=== PATIENT | male | born 1940 | race Caucasian/White ===

== ENCOUNTER → 2017-08-30 13:49 | Outpatient (CLI) | payer MEDICARE, OTHER, SELFPAY | PROVIDERS: Family Provider Internal Medicine; PCP Internal Medicine; Visit Provider Nurse Practitioner Gerontology | DX: I49.9 Cardiac arrhythmia, unspecified (principal); R00.2 Palpitations | CPT/HCPCS: 93225; 93226 ==

== ENCOUNTER → 2018-08-19 12:23 | Outpatient (CLI) | payer MEDICARE, OTHER, SELFPAY ==
--- NOTE | 2018-08-19 12:28 | US_ITS ---
STUDY: THYROID ULTRASOUND REASON FOR EXAM: Male, 78 years old. Nodules TECHNIQUE: Ultrasound evaluation of the thyroid was performed with real-time and static alcala-scale imaging. COMPARISON: 06/18/2017. FINDINGS: RIGHT LOBE: The right lobe of the thyroid gland measures 4.3 x 1.7 x 2.4 cm. There is a homogeneous echotexture. Several primarily cystic subcentimeter nodules are seen, grossly stable. LEFT LOBE: The left lobe of the thyroid gland measures 4.7 x 1.6 x 1.9 cm. There is a homogeneous echotexture. Several cystic nodules are seen. Largest at 1.5 cm in size and grossly stable. ISTHMUS: The isthmus measures 5 mm. . The regional lymph nodes are normal. US/Thyroid IMPRESSION: Multiple cystic thyroid nodules. These do not need biopsy. Annual follow up is adequate. Electronically Signed: Patrice Stafford MD at 17:16 EST , Service support ,
--- NOTE | 2018-08-19 12:48 | CDU_ITS ---
Reason For Study: carotid stenosis Rt. Velocities/BP Lt. Velocities/BP Prox CCA 72.7/11.7 cm/sec. Prox CCA 79.7/12.3 cm/sec. Mid CCA 69.8/16.4 cm/sec. Mid CCA 82.1/19.3 cm/sec. Dist CCA 59.2/17.0 cm/sec. Dist CCA 71.5/19.9 cm/sec. Prox ICA 50.4/15.2 cm/sec. Prox ICA 39.7/13.4 cm/sec. Mid ICA 49.2/16.4 cm/sec. Mid ICA 59.2/20.1 cm/sec. Dist ICA 57.5/20.5 cm/sec. Dist ICA 75.6/28.7 cm/sec. Rt. ICA/CCA = .8. Lt. ICA/CCA = .9. Prox ECA 88.5/11.1 cm/sec. Prox ECA 73.9/10.6 cm/sec. Rt. Vert. 33.3/7.38 cm/sec. Lt. Vert. 81.5/29.9 cm/sec. Right Extracranial There is homogeneous, smooth atherosclerotic plaque noted in the right common carotid artery. There is heterogeneous, irregular atherosclerotic plaque noted in the right internal carotid artery. There is homogeneous, smooth atherosclerotic plaque noted in the right external carotid artery. Antegrade flow is noted in the right vertebral artery. Left Extracranial There is homogeneous, smooth atherosclerotic plaque noted in the left common carotid artery. There is heterogeneous, irregular atherosclerotic plaque noted in the left internal carotid artery. There is homogeneous, smooth atherosclerotic plaque noted in the left external carotid artery. Antegrade flow is noted in the left vertebral artery. Procedure Carotid Duplex [id number]. The exam was diagnostic. Exam performed in department. Interpretation Summary Mild (<50%) stenosis right extracranial internal carotid. Mild (<50%) stenosis left extracranial internal carotid. Flow within the vertebral arteries is antegrade bilaterally. Ordering Physician: Amber Cisneros Performed By: Bashir Colón RVT
== END ==
PROVIDERS: Family Provider Internal Medicine; PCP Internal Medicine; Referring Provider Internal Medicine; Visit Provider Internal Medicine
DX: I65.23 Occlusion and stenosis of bilateral carotid arteries (principal); E04.1 Nontoxic single thyroid nodule
CPT/HCPCS: 76536; 93880

== ENCOUNTER → 2018-11-06 | Outpatient (CLI) | payer MEDICARE, OTHER, SELFPAY ==
[2018-10-09 14:35] VITALS: BMI 27.3
--- NOTE | 2018-11-06 07:53 | ECHOD_ITS ---
Reason For Study: MURMUR Procedure This was a 2D Doppler, Color Flow transthoracic echocardiogram. Exam performed in department. Left Ventricle Normal LV size. Moderate to severe concentric LVH. Left ventricular systolic function is normal. The estimated ejection fraction is 65 %. Post operative septal motion. Diastolic function is indeterminate. No regional wall motion abnormalities noted. Right Ventricle Normal RV size. Normal systolic function. Atria Normal left atrium. Normal right atrium. No doppler evidence for ASD. Mitral Valve There is no mitral annular calcification. Anterior leaflet diffuse mitral valve thickening. Mild (1+) mitral valve insufficiency. Tricuspid Valve Normal tricuspid valve. Trivial tricuspid valve insufficiency. Right ventricular systolic pressure estimated to be 30 mmHg. Aortic Valve Trisinus/trileaflet aortic valve. Mild focal aortic valve calcification. Mild aortic stenosis. Mild (1+) aortic valve insufficiency. Pulmonic Valve The pulmonic valve is not well visualized. Mild (1+) pulmonic valve insufficiency. Great Vessels Normal sized aortic root. Pericardium/Pleural No pericardial effusion. MMode/2D Measurements & Calculations LVIDd: 3.8 cm IVSd: 1.8 cm LVOT diam: 1.8 cm LVIDs: 2.4 cm LVPWd: 1.5 cm LVOT area: 2.5 cm2 RVDd: 3.4 cm FS: 36.3 % Ao root diam: 3.4 cm LAV(MOD-bp): 56.6 ml LVAd ap4: 30.1 cm2 LAV(MOD-bp) Indexed: 29.6 ml/m2 EDV(MOD-sp4): 103.6 ml LAV(MOD-sp2): 55.4 ml EDV(sp4-el): 107.4 ml LAV(MOD-sp4): 53.5 ml LVAs ap4: 15.6 cm2 ESV(MOD-sp4): 32.5 ml ESV(sp4-el): 33.0 ml EF(MOD-sp4): 68.6 % EF(sp4-el): 69.3 % SV(MOD-sp4): 71.1 ml SV(sp4-el): 74.4 ml Aortic Valve Planimetry: 1.7 cm2 LA A4 area: 18.8 cm2 LA dimension(2D): 3.5 cm RA A4 area: 19.4 cm2 Time Measurements MV dec time: 0.20 sec Doppler Measurements & Calculations MV E max reed: 100.9 cm/sec Lat Peak E' Reed: 5.2 cm/sec Med Peak E' Reed: 4.7 cm/sec MV A max reed: 116.6 cm/sec E/E' lat: 19.5 E/E' med: 21.7 MV E/A: 0.87 MV V2 max: 124.4 cm/sec MV P1/2t max reed: 112.6 cm/sec Ao V2 max: 225.1 cm/sec MV max P.2 mmHg MV P1/2t: 125.2 msec Ao max P.3 mmHg MV V2 mean: 70.1 cm/sec Ao V2 mean: 154.0 cm/sec MV mean P.4 mmHg MV dec slope: 263.2 cm/sec2 Ao mean P.9 mmHg MV V2 VTI: 41.3 cm MVA(P1/2t): 1.8 cm2 Ao V2 VTI: 48.6 cm MVA(VTI): 2.1 cm2 ESTHER(I,D): 1.8 cm2 ESTHER(V,D): 1.7 cm2 AI max reed: 492.7 cm/sec LV V1 max: 156.5 cm/sec SV(LVOT): 87.2 ml AI max P.2 mmHg LV V1 max P.8 mmHg LV V1 mean P.3 mmHg AI dec slope: 261.7 cm/sec2 LV V1 mean: 106.6 cm/sec AI P1/2t: 551.5 msec LV V1 VTI: 35.2 cm PA V2 max: 80.6 cm/sec PI end-d reed: 88.7 cm/sec TR max reed: 260.2 cm/sec TR max P.1 mmHg MV P1/2t-pr_phl: 119.8 msec Interpretation Summary Left ventricular systolic function is normal. The estimated ejection fraction is 65 %. Moderate to severe concentric LVH. Post operative septal motion. Anterior leaflet diffuse mitral valve thickening. Mild (1+) mitral valve insufficiency. Trivial tricuspid valve insufficiency. Mild aortic stenosis. Mild (1+) aortic valve insufficiency. Mild (1+) pulmonic valve insufficiency. Right ventricular systolic pressure estimated to be 30 mmHg. Diastolic function is indeterminate. 2D echocardiographic images demostrate an echodenisty in the area of the aortic valve annulus / base of the anterior mitral valve leaflet c/w aortic valve annular calcifiation: severe. Ordering Physician: Colby Byrd Referring Physician: MENDOZA ROJO Performed By: María Chaparro RDCS
== END | disposition home or self-care (01) ==
LOC: CVS 07:52
PROVIDERS: Family Provider Internal Medicine; PCP Internal Medicine; Referring Provider Internal Medicine Cardiovascular Disease; Visit Provider Internal Medicine Cardiovascular Disease
DX: I71.2 Thoracic aortic aneurysm, without rupture (principal)
CPT/HCPCS: 93306

== ENCOUNTER 2018-12-19 15:28 | Emergency (ER) | payer MEDICARE, OTHER, SELFPAY ==
[2018-10-09 14:35] VITALS: BMI 27.3
[2018-12-19] VITALS (9 sets, daily range): BP systolic 98–111; BP diastolic 49–65; PULSE 66–106; RESP 17–32; TEMP 36.7–38.9; O2SAT 92–95; BMI 29.4
--- NOTE | 2018-12-19 15:41 | RAD_ITS ---
STUDY: X-RAY CHEST REASON FOR EXAM: Male, 78 years old. Chest pain TECHNIQUE: Frontal view of the chest COMPARISON: X-ray chest December 01, 2014 FINDINGS: Post CABG changes are present. The lungs are clear. There are no pleural effusions. There is no pneumothorax. The heart is normal in size. The visualized osseous structures are within normal limits. RAD/Chest 1 View (Portable) IMPRESSION: No acute thoracic pathology. Electronically Signed: Daniel Rubio, at 16:12 EDT Tel , Service support ,
--- NOTE | 2018-12-19 15:41 | EKG12_ITS ---
Test Reason : ALTERED LOC Blood Pressure : / mmHG Vent. Rate : 098 BPM Atrial Rate : 098 BPM P-R Int : 184 ms QRS Dur : 092 ms QT Int : 358 ms P-R-T Axes : 027 -24 086 degrees QTc Int : 457 ms Normal sinus rhythm Minimal voltage criteria for LVH, may be normal variant Inferior infarct , age undetermined Cannot rule out Anterior infarct , age undetermined Abnormal ECG Confirmed by ZAFAR FERNANDES ([id number]), research editor KARINA ALICIA ([id number]) on 12/23/2018 1:28:18 PM Referred By: HARJEET Confirmed By:ROD FERNANDES
--- NOTE | 2018-12-19 15:45 | ED.VISSUMM ---
- ER Visit Summary Date of Service: 12/19/18 Chief Complaint: Altered level of consciousness History of Present Illness: The patient is a 78 M who reports nausea and vomiting for the past couple of days. He went to his PCP earlier today and got fluids and a prescription for Zofran. Patient was being very cold and having chills. He states he turn the thermostat up and put several layers of clothes on. When his came home from the grocery store she found him lying on the couch and his alertness was altered. He was not unconscious. Vomitus was noted on the patient's sugar on arrival to the emergency room. He denies having any pain. He did have some coughing earlier. He does admit to nausea and vomiting but no diarrhea. He denies abdominal pain. He has noted a fever the last couple days. He last took aspirin yesterday. He has not taken anything for fever today. Physical Examination: Blood pressure is 106/63, temperature 102.1, heart rate 106, respiratory rate 32, pulse ox 92% on room air. Patient sitting upright in bed. He is alert and talkative. Head and neck examination is grossly unremarkable. Heart is regular rate and rhythm with heart rate in the 90s at the time of my exam. Lung sounds are grossly clear. Abdomen is soft with no tenderness. Hypoactive bowel sounds are noted. Test Results: EKG is sinus at 98 with no acute ischemia. Portable chest x-ray shows no acute disease. CBC was normal white count with 91% neutrophils. Hemoglobin is 12.8. Chemistry studies reveal a sodium of 132, BUN 19, creatinine 1.35. This is actually improved from his baseline. LFTs significant only for an AST of 75. Urinalysis shows 15 ketones with no acute infection. Troponin is negative. Lactate is 2.0. Emergency Department Course and Treatment: Patient was given IV fluids and Tylenol here. Vital signs have remained stable. 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 He states the patient had the same symptoms when he had endocarditis 3 years ago. Patient's care was discussed with his lockstitch collar setter in [place] and they would prefer to have the patient in their facility so they can compare JOS[facility] MIGUEL to the one performed 3 years ago. I spoke with the transfer line. They have spoken with hospitalist as well as cardiology on-call and they would like me to start antibiotics after making sure blood cultures have been obtained. Blood cultures are currently pending and patient will be given vancomycin. Treatment Plan: [] Disposition: Transfer Impression: 1. Sepsis 2. Near syncope 3. History of endocarditis This note was generated with [employer] dictation software. It may contain incorrect words, spelling, and punctuation that were not noted in review of the chart prior to signing ED Disposition - Plan for ED Patient: Referrals: Blayne,Abmer, [Primary Care Provider] -
[2018-12-19] MEDS: Acetaminophen 325 MG Tablet 650 MG PO (15:51)
[2018-12-19 15:57] LABS: Absolute Lymphocyte Count 0.22 X10^3/ul (0.83-4.51); Absolute Neutrophil Count 5.8 X10^3/uL (2.0-7.7); Basophil# 0.01 X10^3/uL; Basophil% 0.2 % (0-1); Differential Indicated SCAN CRITERIA MET; Eosinophil# 0.01 X10^3/uL; Eosinophils% 0.2 % (0-5); Hemoglobin 12.8 g/dl (13.0-16.5); Lymphocyte # 0.22 X10^3/ul (4.0); Lymphocyte % 3.5 % (19-41); Mean Corp Hgb Conc 34.6 g/gl (32-36); Mean Corpuscular Hgb 31.4 pg (27.0-32.0); Mean Corpuscular Volume 90.7 fL (80-94); Monocyte# 0.24 X10^3/uL; Monocyte% 3.8 % (0-10); Neutrophil # 5.78 X10^3/uL (2.7-7.7); Neutrophil % 91.7 % (47-70); POSITIVE COUNT NO; POSITIVE DIFFERENTIAL YES; POSITIVE MORPHOLOGY YES; Platelet Count 212 K/mm3 (150-450); RBC Distribution Width CV 12.7 % (11.6-14.6); RBC Distribution Width SD 41.4 fl (35.1-43.9); Red Blood Count 4.08 M/mm3 (4.6-6.2); White Blood Count 6.3 K/mm3 (4.4-11.0)
[2018-12-19 15:58] LABS: International Normalized Ratio 1.4; Prothrombin Time (Protime)PT. 17.1 SECONDS (11.7-14.9)
[2018-12-19 15:59] LABS: Partial Thromboplast Time 39.2 Seconds (24.1-36.2)
[2018-12-19 16:13] LABS: ALB/GLOB Ratio 0.7 RATIO (0.9-2.4); AST(SGOT) 75 U/L (15-37); Alanine Aminotransfer ALT/SGPT 58 U/L (16-61); Albumin, Serum 2.9 g/dL (3.2-5.0); Alkaline Phosphatase 102 U/L (45-117); Anion Gap 8 (5-15); BUN 19 mg/dL (7-18); BUN/Creat Ratio 14.1 RATIO (10-20); Calcium,Total 8.1 mg/dL (8.5-10.1); Chloride 102 mmol/L (98-107); Creatinine, Serum 1.35 mg/dL (0.70-1.30); EST Glomerular Filtration Rate 54 mL/min (>60); Est Glom Filt Rate - Afr Amer 65 mL/min (>60); Estimated Creatinine Clearance 39.38 ml/min; Glucose 127 mg/dL (74-106); Potassium 3.6 mmol/L (3.5-5.1); Protein, Total 6.9 g/dL (6.4-8.2); Sodium Level 132 mmol/L (136-145)
[2018-12-19] MEDS: 0.9% Normal Saline 1,000 ML 150 ML IV (16:19)
[2018-12-19 16:38] LABS: Anisocytosis RARE; Macrocytosis RARE; Platelet Estimate ADEQUATE (ADEQ)
[2018-12-19 17:29] LABS: Mucous, Urine 0 SEEN /hpf (<or=2+); Squamous Epithelial Cells - UA 0 SEEN /hpf (0-5)
[2018-12-19 17:45] LABS: Color, Urine Yellow (Yellow); Glucose, Dipstick Normal (Normal); Ketone-Dipstick 15 mg/dl (Negative); Leukocyte Esterase-Dipstick 25 /ul (Negative); Nitrite-Dipstick Negative (Negative); Occult Blood-Urine 10 /ul (Negative); Protein-Dipstick 100 mg/dl (Negative); Urine Bilirubin Dipstick Negative (Negative); Urine Clarity Sl. Cloudy (Clear); Urine Urobilinogen Normal (Normal)
[2018-12-19 18:06] LABS: Bacteria 1+ /hpf (None Seen); Red Blood Cells-Urine 0-5 SEEN /hpf (0-5); White Blood Cells 0-5 SEEN /hpf (0-5)
[2018-12-19 19:47] LABS: Reflex Lactate? Y
[2018-12-19 20:35] LABS: Lactic Acid 1.2 mmol/L (0.4-2.0)
== END 2018-12-19 22:25 | disposition short-term general hospital (02) ==
PROVIDERS: Emergency Provider Emergency Medicine; Family Provider Internal Medicine; PCP Internal Medicine
DX: A41.9 Sepsis, unspecified organism (principal); R55 Syncope and collapse; Z86.79 Personal history of other diseases of the circulatory system; I10 Essential (primary) hypertension; E78.00 Pure hypercholesterolemia, unspecified; I71.9 Aortic aneurysm of unspecified site, without rupture; Z95.1 Presence of aortocoronary bypass graft; Z79.82 Long term (current) use of aspirin; Z79.02 Long term (current) use of antithrombotics/antiplatelets; Z79.899 Other long term (current) drug therapy
CPT/HCPCS: 71045; 80053; 81001; 83605; 84484; 85025; 85610; 85730; 87040; 87086; 87088; 87186; 93005; 96361; 96365; 96366; 99285; J7030; J7040; A4216

== ENCOUNTER → 2019-01-02 13:09 | Outpatient (CLI) | payer MEDICARE, OTHER, SELFPAY ==
[2018-12-19 15:29] VITALS: BMI 29.4
[2019-01-02] MEDS: Ceftriaxone 2 GM in 0.9% NS 50 ML Minibag x1 IV (13:28)
[2019-01-02 13:30] VITALS: BP 113/63; PULSE 65; RESP 18; TEMP 36.4; O2SAT 96; BMI 25.8
== END ==
PROVIDERS: Family Provider Internal Medicine; PCP Internal Medicine
DX: K75.0 Abscess of liver (principal); B96.6 Bacteroides fragilis [B. fragilis] as the cause of diseases classified elsewhere
CPT/HCPCS: 96365; A4216; J0696

== ENCOUNTER → 2019-01-03 13:11 | Outpatient (CLI) | payer MEDICARE, OTHER, SELFPAY ==
[2018-12-19 15:29] VITALS: BMI 29.4
[2019-01-02 13:30] VITALS: BMI 25.8
[2019-01-03 13:25] VITALS: BP 144/72; PULSE 62; RESP 16; TEMP 36.6; O2SAT 97; BMI 26.3
[2019-01-03] MEDS: Ceftriaxone 2 GM in 0.9% NS 50 ML Minibag x1 IV (13:29)
== END ==
PROVIDERS: Family Provider Internal Medicine; PCP Internal Medicine
DX: K75.0 Abscess of liver (principal); B96.6 Bacteroides fragilis [B. fragilis] as the cause of diseases classified elsewhere
CPT/HCPCS: 96365; J7050; A4216; J0696

== ENCOUNTER 2019-01-04 13:20 | Outpatient (CLI) | payer MEDICARE, OTHER, SELFPAY ==
[2018-12-19 15:29] VITALS: BMI 29.4
[2019-01-03 13:25] VITALS: BMI 26.3
[2019-01-04 13:47] VITALS: BP 122/71; PULSE 72; RESP 18; TEMP 37.1; O2SAT 97
[2019-01-04] MEDS: Ceftriaxone 2 GM in 0.9% NS 50 ML Minibag x1 IV (13:56)
[2019-01-04] MEDS: 0.9% NaCl PICC Flush IV ×2 (13:56→14:47)
== END 2019-01-04 14:51 | disposition home or self-care (01) ==
LOC: MEDOUTP 13:24 → MS3 13:26
PROVIDERS: Family Provider Internal Medicine; PCP Internal Medicine; Referring Provider Internal Medicine; Visit Provider Internal Medicine
DX: K76.0 Fatty (change of) liver, not elsewhere classified (principal); B96.6 Bacteroides fragilis [B. fragilis] as the cause of diseases classified elsewhere
CPT/HCPCS: 96365; A4216; J0696

== ENCOUNTER 2019-01-05 13:03 | Outpatient (CLI) | payer MEDICARE, OTHER, SELFPAY ==
[2018-12-19 15:29] VITALS: BMI 29.4
[2019-01-03 13:25] VITALS: BMI 26.3
[2019-01-05 13:27] VITALS: BP 138/78; PULSE 66; RESP 18; TEMP 36.7; O2SAT 99
[2019-01-05] MEDS: Ceftriaxone 2 GM in 0.9% NS 50 ML Minibag x1 IV (13:32)
[2019-01-05] MEDS: 0.9% NaCl IVPB Med Flush (250 mL) 15 ML IV (13:32)
== END 2019-01-05 14:25 | disposition home or self-care (01) ==
LOC: MEDOUTP 13:05 → MS3 13:06
PROVIDERS: Family Provider Internal Medicine; PCP Internal Medicine; Referring Provider Internal Medicine; Visit Provider Internal Medicine
DX: K75.0 Abscess of liver (principal); B96.6 Bacteroides fragilis [B. fragilis] as the cause of diseases classified elsewhere
CPT/HCPCS: 96365; J7050; J0696

== ENCOUNTER → 2019-01-06 12:56 | Outpatient (CLI) | payer MEDICARE, OTHER, SELFPAY ==
[2018-12-19 15:29] VITALS: BMI 29.4
[2019-01-03 13:25] VITALS: BMI 26.3
[2019-01-06 14:14] VITALS: BP 121/66; PULSE 67; RESP 16; TEMP 36.8; O2SAT 96
== END ==
PROVIDERS: Family Provider Internal Medicine; PCP Internal Medicine; Referring Provider Internal Medicine; Visit Provider Internal Medicine
DX: A49.8 Other bacterial infections of unspecified site (principal)
CPT/HCPCS: 96365; J7040; A4216

== ENCOUNTER → 2019-01-07 13:39 | Outpatient (CLI) | payer MEDICARE, OTHER, SELFPAY ==
[2018-12-19 15:29] VITALS: BMI 29.4
[2019-01-03 13:25] VITALS: BMI 26.3
[2019-01-07 13:52] VITALS: BP 148/84; PULSE 66; RESP 16; O2SAT 96; BMI 26.3
[2019-01-07 15:08] LABS: Absolute Lymphocyte Count 1.37 X10^3/ul (0.83-4.51); Absolute Neutrophil Count 3.8 X10^3/uL (2.0-7.7); Basophil# 0.02 X10^3/uL; Basophil% 0.3 % (0-1); Eosinophil# 0.18 X10^3/uL; Hematocrit 37.4 % (40-54); Hemoglobin 12.1 g/dl (13.0-16.5); Lymphocyte # 1.37 X10^3/ul (4.0); Lymphocyte % 22.9 % (19-41); Mean Corp Hgb Conc 32.4 g/gl (32-36); Mean Corpuscular Hgb 30.1 pg (27.0-32.0); Mean Platelet Vol. 8.7 fl (6.2-12.0); Monocyte# 0.57 X10^3/uL; Monocyte% 9.5 % (0-10); Neutrophil # 3.79 X10^3/uL (2.7-7.7); Neutrophil % 63.6 % (47-70); Platelet Count 305 K/mm3 (150-450); RBC Distribution Width CV 13.1 % (11.6-14.6); Red Blood Count 4.02 M/mm3 (4.6-6.2)
[2019-01-07 15:10] LABS: POSITIVE COUNT NO; POSITIVE DIFFERENTIAL NO; POSITIVE MORPHOLOGY NO
[2019-01-07 15:24] LABS: Erythrocyte Sedimentation Rate 51 mm/hr (0-20)
[2019-01-07 15:40] LABS: ALB/GLOB Ratio 0.7 RATIO (0.9-2.4); AST(SGOT) 20 U/L (15-37); Alanine Aminotransfer ALT/SGPT 21 U/L (16-61); Albumin, Serum 2.7 g/dL (3.2-5.0); Alkaline Phosphatase 117 U/L (45-117); Amylase 91 U/L (25-115); Anion Gap 5 (5-15); BUN 10 mg/dL (7-18); BUN/Creat Ratio 8.8 RATIO (10-20); CRP 6.86 mg/L (0.0-3.0); Calcium,Total 8.7 mg/dL (8.5-10.1); Chloride 103 mmol/L (98-107); Creatinine, Serum 1.13 mg/dL (0.70-1.30); EST Glomerular Filtration Rate 66 mL/min (>60); Est Glom Filt Rate - Afr Amer 80 mL/min (>60); Glucose 93 mg/dL (74-106); Lipase 182 U/L (73-393); Potassium 4.7 mmol/L (3.5-5.1); Protein, Total 6.7 g/dL (6.4-8.2); Sodium Level 135 mmol/L (136-145); Thyroid Stim Hormone (TSH) 1.25 uIU/mL (0.358-3.74)
[2019-01-07 22:15] LABS: Xtra Tube EP Lab EXTRA TUBE
[2019-01-13 16:06] LABS: Immunoglobulin A 240 mg/dL (61-437); Immunoglobulin E 40 IU/mL (6-495); Immunoglobulin G 986 mg/dL (700-1600); PROEL- A/G Ratio 0.9 (0.7-1.7); PROEL- Alpha-1 Globulin 0.4 g/dL (0.0-0.4); PROEL- Alpha-2 Globulin 0.8 g/dL (0.4-1.0); PROEL- Beta Globulin 0.9 g/dL (0.7-1.3); PROEL- Gamma Globulin 1.2 g/dL (0.4-1.8); PROEL- Globulin, Total 3.2 g/dL (2.2-3.9); PROEL- TOTAL PROTEIN 6.2 g/dL (6.0-8.5); PROELU- Albumin, Urine 12.4 % (.); PROELU- Alpha-1-Globulin,Ur 17.3 % (.); PROELU- Alpha-2-Globulin,Ur 13.1 % (.); PROELU- Gamma Globulin, Ur 23.7 % (.)
[2019-01-15 17:34] LABS: Immunoglobulin M 163 mg/dL (15-143)
[2019-01-15 17:39] LABS: PROELU- Beta Globulin, Ur 33.5 %
[2019-01-15 17:40] LABS: Total Protein, Ur 6.2 mg/dl (0.0-15.0)
== END ==
PROVIDERS: Family Provider Internal Medicine; PCP Internal Medicine; Referring Provider Internal Medicine; Visit Provider Internal Medicine
DX: A41.4 Sepsis due to anaerobes (principal); K75.0 Abscess of liver; I10 Essential (primary) hypertension
CPT/HCPCS: 96365; 36591; 80053; 82150; 82784; 82785; 83690; 84165; 84166; 84443; 84484; 85025; 85652; 86140; J7050; A4216

== ENCOUNTER → 2019-01-08 13:16 | Outpatient (CLI) | payer MEDICARE, OTHER, SELFPAY ==
[2019-01-07 13:52] VITALS: BMI 26.3
[2019-01-08 13:35] VITALS: BP 122/69; RESP 16; TEMP 36.6; O2SAT 96; BMI 24.7
== END ==
PROVIDERS: Family Provider Internal Medicine; PCP Internal Medicine; Referring Provider Internal Medicine; Visit Provider Internal Medicine
DX: A49.8 Other bacterial infections of unspecified site (principal)
CPT/HCPCS: 96365; J7050; A4216

== ENCOUNTER 2019-01-09 13:14 | Outpatient (CLI) | payer MEDICARE, OTHER, SELFPAY ==
[2019-01-07 13:52] VITALS: BMI 26.3
[2019-01-08 13:35] VITALS: BMI 24.7
[2019-01-09] MEDS: 0.9% NaCl IVPB Med Flush (250 mL) 15 ML IV (13:17)
[2019-01-09] MEDS: 0.9% NaCl PICC Flush IV ×2 (13:17→14:05)
[2019-01-09 13:19] VITALS: BP 107/60; PULSE 70; RESP 18; TEMP 36.8; O2SAT 95
== END 2019-01-09 14:05 | disposition home or self-care (01) ==
LOC: MEDOUTP 13:14 → MS3 13:15
PROVIDERS: Family Provider Internal Medicine; PCP Internal Medicine; Referring Provider Internal Medicine; Visit Provider Internal Medicine
DX: A49.8 Other bacterial infections of unspecified site (principal)
CPT/HCPCS: 96365; J7050; A4216

== ENCOUNTER → 2019-01-10 12:29 | Outpatient (CLI) | payer MEDICARE, OTHER, SELFPAY ==
[2019-01-08 13:35] VITALS: BMI 24.7
== END ==
PROVIDERS: Family Provider Internal Medicine; PCP Internal Medicine; Referring Provider Internal Medicine; Visit Provider Internal Medicine
DX: R00.0 Tachycardia, unspecified (principal)
CPT/HCPCS: 93225; 93226

== ENCOUNTER → 2019-01-10 13:18 | Outpatient (CLI) | payer MEDICARE, OTHER, SELFPAY ==
[2019-01-07 13:52] VITALS: BMI 26.3
[2019-01-08 13:35] VITALS: BMI 24.7
[2019-01-10 14:07] VITALS: BP 96/58; PULSE 75; RESP 16; TEMP 36.3; O2SAT 96; BMI 25.8
[2019-01-15 17:02] LABS: 5-HIAA, 24UR 4.3 mg/24 hr (0.0-14.9); 5-HIAA, UR 1.5 mg/L (Undefined)
== END ==
PROVIDERS: Family Provider Internal Medicine; PCP Internal Medicine; Referring Provider Internal Medicine; Visit Provider Internal Medicine
DX: A49.8 Other bacterial infections of unspecified site (principal); R00.0 Tachycardia, unspecified
CPT/HCPCS: 96365; 83497; 93225; 93226; J7050; A4216

== ENCOUNTER 2019-01-11 12:56 | Outpatient (CLI) | payer MEDICARE, OTHER, SELFPAY ==
[2019-01-07 13:52] VITALS: BMI 26.3
[2019-01-10 14:07] VITALS: BMI 25.8
[2019-01-11] MEDS: 0.9% NaCl IVPB Med Flush (250 mL) 15 ML IV (13:15)
[2019-01-11] MEDS: 0.9% NaCl PICC Flush IV ×2 (13:19→14:28)
[2019-01-11 13:41] VITALS: BP 105/51; PULSE 69; RESP 16; TEMP 36.6; O2SAT 95
== END 2019-01-11 14:29 | disposition home or self-care (01) ==
LOC: MEDOUTP 12:58 → MS3 13:00
PROVIDERS: Family Provider Internal Medicine; PCP Internal Medicine; Referring Provider Internal Medicine; Visit Provider Internal Medicine
DX: A49.8 Other bacterial infections of unspecified site (principal)
CPT/HCPCS: 96365; J7050; A4216

== ENCOUNTER 2019-01-12 13:00 | Outpatient (CLI) | payer MEDICARE, OTHER, SELFPAY ==
[2019-01-07 13:52] VITALS: BMI 26.3
[2019-01-10 14:07] VITALS: BMI 25.8
[2019-01-12 13:21] VITALS: BP 110/69; PULSE 74; RESP 16; TEMP 36.6; O2SAT 98
[2019-01-12] MEDS: 0.9% NaCl PICC Flush IV (14:05)
== END 2019-01-12 14:11 | disposition home or self-care (01) ==
LOC: MEDOUTP 13:01 → MS3 13:02
PROVIDERS: Family Provider Internal Medicine; PCP Internal Medicine; Referring Provider Internal Medicine; Visit Provider Internal Medicine
DX: A49.8 Other bacterial infections of unspecified site (principal)
CPT/HCPCS: 96365; J7040; A4216

== ENCOUNTER → 2019-01-13 13:01 | Outpatient (CLI) | payer MEDICARE, OTHER, SELFPAY ==
[2019-01-07 13:52] VITALS: BMI 26.3
[2019-01-10 14:07] VITALS: BMI 25.8
[2019-01-13 13:25] VITALS: BP 113/61; PULSE 68; RESP 16; TEMP 36.4; O2SAT 98; BMI 25.8
[2019-01-13 13:53] LABS: AST(SGOT) 32 U/L (15-37); Alanine Aminotransfer ALT/SGPT 35 U/L (16-61); Albumin, Serum 2.9 g/dL (3.2-5.0); Alkaline Phosphatase 123 U/L (45-117); Bilirubin, Direct 0.13 mg/dL (0.00-0.30); Globulin 3.8 g/dL (2.2-4.2); Protein, Total 6.7 g/dL (6.4-8.2)
== END ==
PROVIDERS: Family Provider Internal Medicine; PCP Internal Medicine; Referring Provider Internal Medicine; Visit Provider Internal Medicine
DX: A49.8 Other bacterial infections of unspecified site (principal)
CPT/HCPCS: 96365; 80076; J7050; A4216

== ENCOUNTER → 2019-01-14 13:14 | Outpatient (CLI) | payer MEDICARE, OTHER, SELFPAY ==
[2019-01-07 13:52] VITALS: BMI 26.3
[2019-01-13 13:25] VITALS: BMI 25.8
[2019-01-14 13:34] VITALS: BP 116/62; PULSE 76; RESP 16; TEMP 36.7; O2SAT 99; BMI 25.8
== END ==
PROVIDERS: Family Provider Internal Medicine; PCP Internal Medicine; Referring Provider Internal Medicine; Visit Provider Internal Medicine
DX: A49.8 Other bacterial infections of unspecified site (principal)
CPT/HCPCS: 96365; J7050; A4216

== ENCOUNTER → 2019-01-15 10:35 | Outpatient (CLI) | payer MEDICARE, OTHER, SELFPAY ==
[2019-01-08 13:35] VITALS: BMI 24.7
[2019-01-14 13:34] VITALS: BMI 25.8
--- NOTE | 2019-01-15 10:40 | NM_ITS ---
CLINICAL: 78-year-old male with reported history of right upper quadrant abdominal pain. RADIONUCLIDE HEPATOBILIARY SCINTIGRAPHY COMPARISON: None available FINDINGS: Following the intravenous administration of 5.4 mCi of 99m Tc Mebrofenin, hepatobiliary images reveal: 1. Relatively prompt and homogeneous radiopharmaceutical concentration is noted by a normal sized liver. No parenchymal defects are identified. 2. Gallbladder activity is identified at 75 minutes post radiopharmaceutical administration. 3. Small intestinal tract is observed at 15 minutes following tracer injection. 4. Washout of the radiopharmaceutical by the hepatic parenchyma appears qualitatively normal. Cholecystokinin (0.02 ug/kg) was administered intravenously over a 30-minute period. The post CCK gallbladder ejection fraction calculated at 20 minutes following Cholecystokinin administration was noted to be 31.0 % (normal greater than 35%). GA/Hepatobilliary Img w/Pharm Int IMPRESSION: 1. ABNORMAL 99m Tc Mebrofenin hepatobiliary imaging examination with Cholecystokinin. A. A gallbladder ejection fraction calculated to be less than 35% following the administration of Cholecystokinin is consistent with the presence of functional hepatobiliary disease (gallbladder and/or sphincter of Oddi dyskinesia) and/or organic hepatobiliary disease (chronic acalculous cholecystitis and/or cystic duct syndrome) in patients with intermediate to high pretest probabilities of hepatobiliary illness. (Christy Grissom et al, Journal of Nuclear Medicine 32:1695, 1990). Electronically Signed: David Hernandez DO at 23:39 EDT Tel , Service support ,
== END ==
PROVIDERS: Family Provider Internal Medicine; PCP Internal Medicine; Referring Provider Internal Medicine; Visit Provider Internal Medicine
DX: K75.0 Abscess of liver (principal)
CPT/HCPCS: 78227; A9537; J2805

== ENCOUNTER → 2019-01-15 13:31 | Outpatient (CLI) | payer MEDICARE, OTHER, SELFPAY ==
[2019-01-07 13:52] VITALS: BMI 26.3
[2019-01-14 13:34] VITALS: BMI 25.8
[2019-01-15 13:49] VITALS: BP 124/72; PULSE 62; RESP 15; TEMP 36.8; O2SAT 96; BMI 25.0
== END ==
PROVIDERS: Family Provider Internal Medicine; PCP Internal Medicine; Referring Provider Internal Medicine; Visit Provider Internal Medicine
DX: K75.0 Abscess of liver (principal); A49.8 Other bacterial infections of unspecified site
CPT/HCPCS: 96365; 78227; A9537; J7050; A4216; J2805

== ENCOUNTER → 2019-01-16 12:56 | Outpatient (CLI) | payer MEDICARE, OTHER, SELFPAY ==
[2019-01-07 13:52] VITALS: BMI 26.3
[2019-01-15 13:49] VITALS: BMI 25.0
[2019-01-16 13:26] VITALS: BP 107/52; PULSE 65; RESP 16; TEMP 36.3; O2SAT 96; BMI 24.7
== END ==
PROVIDERS: Family Provider Internal Medicine; PCP Internal Medicine; Referring Provider Internal Medicine; Visit Provider Internal Medicine
DX: R78.81 Bacteremia (principal); K75.0 Abscess of liver
CPT/HCPCS: 96365; J7050; A4216

== ENCOUNTER → 2019-01-17 13:02 | Outpatient (CLI) | payer MEDICARE, OTHER, SELFPAY ==
[2019-01-07 13:52] VITALS: BMI 26.3
[2019-01-16 13:26] VITALS: BMI 24.7
[2019-01-17 13:17] VITALS: BP 121/62; PULSE 66; RESP 16; TEMP 36.6; O2SAT 98; BMI 24.7
== END ==
PROVIDERS: Family Provider Internal Medicine; PCP Internal Medicine; Referring Provider Internal Medicine; Visit Provider Internal Medicine
DX: K75.0 Abscess of liver (principal); A49.8 Other bacterial infections of unspecified site
CPT/HCPCS: 96365; A4216

== ENCOUNTER 2019-01-18 12:51 | Outpatient (CLI) | payer MEDICARE, OTHER, SELFPAY ==
[2019-01-07 13:52] VITALS: BMI 26.3
[2019-01-17 13:17] VITALS: BMI 24.7
[2019-01-18 13:12] VITALS: BP 117/59; PULSE 63; RESP 14; TEMP 36.6; O2SAT 97
[2019-01-18] MEDS: 0.9% NaCl PICC Flush IV ×2 (13:19→14:06)
[2019-01-18 14:08] VITALS: BP 133/60; PULSE 63; RESP 14; TEMP 36.9; O2SAT 97
== END 2019-01-18 14:15 | disposition home or self-care (01) ==
LOC: MEDOUTP 12:52 → ICU 12:59
PROVIDERS: Family Provider Internal Medicine; PCP Internal Medicine; Referring Provider Internal Medicine; Visit Provider Internal Medicine
DX: A49.8 Other bacterial infections of unspecified site (principal); K75.0 Abscess of liver
CPT/HCPCS: 96365; A4216

== ENCOUNTER 2019-01-19 13:10 | Outpatient (CLI) | payer MEDICARE, OTHER, SELFPAY ==
[2019-01-07 13:52] VITALS: BMI 26.3
[2019-01-17 13:17] VITALS: BMI 24.7
[2019-01-19 13:57] VITALS: BP 116/56; PULSE 60; RESP 16; TEMP 36.6; O2SAT 96; BMI 26.3
[2019-01-19] MEDS: 0.9% NaCl Peripheral Flush Adult/Peds IV (13:58)
[2019-01-19 14:28] VITALS: BP 129/63; PULSE 63; RESP 18; TEMP 36.6; O2SAT 97; BMI 26.3
[2019-01-19] MEDS: 0.9% NaCl PICC Flush IV (14:29)
== END 2019-01-19 14:30 | disposition home or self-care (01) ==
LOC: MEDOUTP 13:27 → ICU 13:28
PROVIDERS: Family Provider Internal Medicine; PCP Internal Medicine; Referring Provider Internal Medicine; Visit Provider Internal Medicine
DX: R78.81 Bacteremia (principal); K75.0 Abscess of liver
CPT/HCPCS: 96365; A4216

== ENCOUNTER → 2019-01-20 | Outpatient (CLI) | payer MEDICARE, OTHER, SELFPAY ==
[2019-01-07 13:52] VITALS: BMI 26.3
[2019-01-19 14:28] VITALS: BMI 26.3
[2019-01-20 13:33] VITALS: BMI 24.7
[2019-01-20 13:36] VITALS: BP 146/63; PULSE 55; RESP 16; TEMP 36.6; O2SAT 98; BMI 24.7
[2019-01-20 13:41] LABS: Hematocrit 35.9 % (40-54); Hemoglobin 11.9 g/dl (13.0-16.5); Mean Corp Hgb Conc 33.1 g/gl (32-36); Mean Corpuscular Hgb 30.7 pg (27.0-32.0); Mean Corpuscular Volume 92.5 fL (80-94); Mean Platelet Vol. 8.6 fl (6.2-12.0); Platelet Count 206 K/mm3 (150-450); RBC Distribution Width CV 13.6 % (11.6-14.6); RBC Distribution Width SD 45.2 fl (35.1-43.9); Red Blood Count 3.88 M/mm3 (4.6-6.2); White Blood Count 5.6 K/mm3 (4.4-11.0)
[2019-01-20 13:54] LABS: Anion Gap 6 (5-15); BUN 12 mg/dL (7-18); BUN/Creat Ratio 11.5 RATIO (10-20); Calcium,Total 8.4 mg/dL (8.5-10.1); Chloride 107 mmol/L (98-107); Creatinine, Serum 1.04 mg/dL (0.70-1.30); EST Glomerular Filtration Rate 73 mL/min (>60); Est Glom Filt Rate - Afr Amer 88 mL/min (>60); Estimated Creatinine Clearance 54.81 ml/min; Glucose 95 mg/dL (74-106); Sodium Level 139 mmol/L (136-145)
[2019-01-20 14:33] LABS: Scan Indicated on CBC? Y/N NO
[2019-01-20 21:34] LABS: Xtra Tube EP Lab EXTRA TUBE
== END | disposition home or self-care (01) ==
LOC: MEDOUTP 13:03
PROVIDERS: Family Provider Internal Medicine; PCP Internal Medicine; Referring Provider Internal Medicine; Visit Provider Internal Medicine
DX: K75.0 Abscess of liver (principal); B96.89 Other specified bacterial agents as the cause of diseases classified elsewhere; R78.81 Bacteremia
CPT/HCPCS: 96365; 36591; 80048; 85027; J7050; A4216

== ENCOUNTER → 2019-01-21 13:01 | Outpatient (CLI) | payer MEDICARE, OTHER, SELFPAY ==
[2019-01-07 13:52] VITALS: BMI 26.3
[2019-01-20 13:36] VITALS: BMI 24.7
[2019-01-21 13:15] VITALS: BMI 24.7
[2019-01-21 13:19] VITALS: BP 123/67; PULSE 58; RESP 16; TEMP 36.3; O2SAT 99; BMI 24.7
== END ==
PROVIDERS: Family Provider Internal Medicine; PCP Internal Medicine; Referring Provider Internal Medicine; Visit Provider Internal Medicine
DX: A49.8 Other bacterial infections of unspecified site (principal); K75.0 Abscess of liver
CPT/HCPCS: 96365; J7050; A4216

== ENCOUNTER → 2019-01-22 13:06 | Outpatient (CLI) | payer MEDICARE, OTHER, SELFPAY ==
[2019-01-07 13:52] VITALS: BMI 26.3
[2019-01-21 13:19] VITALS: BMI 24.7
[2019-01-22 13:22] VITALS: BP 145/79; PULSE 58; RESP 16; TEMP 36.6; O2SAT 98; BMI 24.7
== END ==
PROVIDERS: Family Provider Internal Medicine; PCP Internal Medicine; Referring Provider Internal Medicine; Visit Provider Internal Medicine
DX: A49.8 Other bacterial infections of unspecified site (principal)
CPT/HCPCS: 96365; J7050; A4216

== ENCOUNTER → 2019-01-23 09:21 | Outpatient (CLI) | payer MEDICARE, OTHER, SELFPAY ==
[2019-01-07 13:52] VITALS: BMI 26.3
[2019-01-22 13:22] VITALS: BMI 24.7
[2019-01-23 09:27] VITALS: BP 124/63; PULSE 57; RESP 16; TEMP 36.1; O2SAT 96; BMI 24.7
== END ==
PROVIDERS: Family Provider Internal Medicine; PCP Internal Medicine; Referring Provider Internal Medicine; Visit Provider Internal Medicine
DX: R78.81 Bacteremia (principal); K75.0 Abscess of liver
CPT/HCPCS: 96365; J7050; A4216

== ENCOUNTER → 2019-01-24 12:52 | Outpatient (CLI) | payer MEDICARE, OTHER, SELFPAY ==
[2019-01-07 13:52] VITALS: BMI 26.3
[2019-01-23 09:27] VITALS: BMI 24.7
[2019-01-24 13:11] VITALS: BP 117/58; PULSE 62; RESP 16; TEMP 36.7; O2SAT 96; BMI 24.7
== END ==
PROVIDERS: Family Provider Internal Medicine; PCP Internal Medicine; Referring Provider Internal Medicine; Visit Provider Internal Medicine
DX: A49.8 Other bacterial infections of unspecified site (principal)
CPT/HCPCS: 96365; J7050; A4216

== ENCOUNTER 2019-01-25 12:41 | Outpatient (CLI) | payer MEDICARE, OTHER, SELFPAY ==
[2019-01-07 13:52] VITALS: BMI 26.3
[2019-01-24 13:11] VITALS: BMI 24.7
[2019-01-25 13:00] VITALS: BP 109/65; PULSE 59; RESP 16; TEMP 36.7; O2SAT 98
[2019-01-25 14:07] VITALS: BP 135/74; PULSE 57; RESP 16; TEMP 36.6; O2SAT 98
[2019-01-25] MEDS: 0.9% NaCl PICC Flush IV (14:08)
== END 2019-01-25 14:10 | disposition home or self-care (01) ==
LOC: MEDOUTP 12:42 → PCU 12:43
PROVIDERS: Family Provider Internal Medicine; PCP Internal Medicine; Referring Provider Internal Medicine; Visit Provider Internal Medicine
DX: A49.8 Other bacterial infections of unspecified site (principal)
CPT/HCPCS: 96365; J7040; A4216

== ENCOUNTER 2019-01-26 13:09 | Outpatient (CLI) | payer MEDICARE, OTHER, SELFPAY ==
[2019-01-24 13:11] VITALS: BMI 24.7
[2019-01-26 13:15] VITALS: BP 126/77; PULSE 60; RESP 16; TEMP 36.6; O2SAT 97
[2019-01-26] MEDS: 0.9% NaCl PICC Flush IV (14:19)
== END 2019-01-26 14:20 | disposition home or self-care (01) ==
LOC: MEDOUTP 13:12 → MS3 13:13
PROVIDERS: Family Provider Internal Medicine; PCP Internal Medicine
DX: A49.8 Other bacterial infections of unspecified site (principal)
CPT/HCPCS: 96365; A4216

== ENCOUNTER → 2019-01-27 13:02 | Outpatient (CLI) | payer MEDICARE, OTHER, SELFPAY ==
[2019-01-24 13:11] VITALS: BMI 24.7
[2019-01-27 13:51] LABS: Hematocrit 37.4 % (40-54); Hemoglobin 12.3 g/dL (13.0-16.5); Mean Corp Hgb Conc 32.9 g/dL (32-36); Mean Corpuscular Hgb 30.5 pg (27.0-32.0); Mean Corpuscular Volume 92.8 fL (80-94); Mean Platelet Vol. 8.5 fl (6.2-12.0); Platelet Count 204 K/mm3 (150-450); RBC Distribution Width CV 13.2 % (11.6-14.6); RBC Distribution Width SD 45.2 fl (35.1-43.9); Red Blood Count 4.03 M/mm3 (4.6-6.2); White Blood Count 6.3 K/mm3 (4.4-11.0)
[2019-01-27 14:05] LABS: Anion Gap 5 (5-15); BUN 18 mg/dL (7-18); BUN/Creat Ratio 15.1 RATIO (10-20); Calcium,Total 8.7 mg/dL (8.5-10.1); Chloride 105 mmol/L (98-107); Creatinine, Serum 1.19 mg/dL (0.70-1.30); EST Glomerular Filtration Rate 62 mL/min (>60); Est Glom Filt Rate - Afr Amer 76 mL/min (>60); Glucose 99 mg/dL (74-106); Sodium Level 137 mmol/L (136-145)
[2019-01-27 14:52] VITALS: BP 112/64; PULSE 57; RESP 16; TEMP 36.3
[2019-01-27 16:34] VITALS: BP 112/64; PULSE 57; RESP 16; TEMP 36.3; BMI 24.7
== END ==
PROVIDERS: Family Provider Internal Medicine; PCP Internal Medicine; Referring Provider Internal Medicine; Visit Provider Internal Medicine
DX: A49.8 Other bacterial infections of unspecified site (principal)
CPT/HCPCS: 96365; 80048; 85027; J7050; A4216

== ENCOUNTER → 2019-01-29 13:17 | Outpatient (CLI) | payer MEDICARE, OTHER, SELFPAY ==
[2019-01-27 16:34] VITALS: BMI 24.7
[2019-01-29 13:25] VITALS: BP 144/65; PULSE 58; RESP 15; TEMP 36.4; O2SAT 95; BMI 24.7
== END ==
PROVIDERS: Family Provider Internal Medicine; PCP Internal Medicine; Referring Provider Internal Medicine; Visit Provider Internal Medicine
DX: A49.8 Other bacterial infections of unspecified site (principal); K75.0 Abscess of liver

== ENCOUNTER 2019-04-08 09:05 | Emergency (ER) | payer MEDICARE, OTHER, SELFPAY ==
[2019-01-29 13:25] VITALS: BMI 24.7
[2019-04-08 09:06] VITALS: BP 149/98; PULSE 76; RESP 16; TEMP 36.4; O2SAT 95; BMI 26.7
--- NOTE | 2019-04-08 09:15 | EKG12_ITS ---
Test Reason : SVT Blood Pressure : / mmHG Vent. Rate : 068 BPM Atrial Rate : 068 BPM P-R Int : 232 ms QRS Dur : 098 ms QT Int : 400 ms P-R-T Axes : -19 -25 050 degrees QTc Int : 425 ms Sinus rhythm with 1st degree A-V block Minimal voltage criteria for LVH, may be normal variant Septal infarct age undetermined, cannot be excluded Inferior Infarct,age undetermined, cannot be excluded Nonspecific T-wave abnormality Abnormal ECG Confirmed by JENNIFER AMEZCUA, YULI ([id number]), newspaper photo editor KARINA ALICIA ([id number]) on 04/09/2019 12:07:39 PM Referred By: MR Confirmed By:YULI RODRIGUEZ MD
--- NOTE | 2019-04-08 09:15 | RAD_ITS ---
STUDY: X-RAY CHEST REASON FOR EXAM: Male, 79 years old. Shortness of breath. Chest pain. TECHNIQUE: AP and lateral views of the chest. COMPARISON: Comparison is made with prior examination dated December 19, 2018. FINDINGS: EKG electrodes are seen. Hyperinflation. Decreased bronchovascular markings in both lungs suggestive of emphysematous change. This is unchanged. There is no demonstrated pleural abnormality. Sternal cerclage wires and vascular clips are present from a prior sternotomy and coronary artery bypass graft procedure (CABG). Stable widening of the superior mediastinum on the left side. This may be due to a vascular anomaly. There is prominence of the pulmonary hilar arteries without peripheral pulmonary vascular congestion, suggesting pulmonary hypertension. There is atherosclerotic tortuosity of the aortic arch and descending thoracic aorta. There are degenerative changes of the visualized thoracic spine. Normal visualized ribs, clavicles, and shoulders. There is no demonstrated abnormality of the visualized soft tissue structures of the upper abdomen. RAD/Chest PA and Lateral IMPRESSION: Hyperinflation and emphysematous changes. Stable examination. Electronically Signed: Jaime Gunn, at 10:36 EDT , Service support ,
[2019-04-08 09:25] LABS: Absolute Lymphocyte Count 1.54 X10^3/uL (0.83-4.51); Absolute Neutrophil Count 3.6 X10^3/uL (2.0-7.7); Basophil# 0.07 X10^3/uL; Basophil% 1.2 % (0-1); Eosinophil# 0.37 X10^3/uL; Eosinophils% 6.1 % (0-5); Hematocrit 44.2 % (40-54); Hemoglobin 14.7 g/dL (13.0-16.5); Lymphocyte # 1.54 X10^3/ul (4.0); Lymphocyte % 25.3 % (19-41); Mean Corp Hgb Conc 33.3 g/dL (32-36); Mean Corpuscular Hgb 30.4 pg (27.0-32.0); Mean Corpuscular Volume 91.3 fL (80-94); Mean Platelet Vol. 8.6 fl (6.2-12.0); Monocyte# 0.45 X10^3/uL; Monocyte% 7.4 % (0-10); NRBC Flagged by Analyzer 0 % (0-5); Neutrophil # 3.62 X10^3/uL (2.7-7.7); Neutrophil % 59.5 % (47-70); Platelet Count 252 K/mm3 (150-450); RBC Distribution Width CV 13.1 % (11.6-14.6); RBC Distribution Width SD 43.5 fl (35.1-43.9); Red Blood Count 4.84 M/mm3 (4.6-6.2); White Blood Count 6.1 K/mm3 (4.4-11.0)
[2019-04-08 09:39] LABS: International Normalized Ratio 1.1; Prothrombin Time (Protime)PT. 13.6 SECONDS (11.7-14.9)
[2019-04-08 09:40] LABS: Partial Thromboplast Time 35.1 Seconds (24.1-36.2)
[2019-04-08 09:41] LABS: Anion Gap 12 (5-15); BUN 15 mg/dL (7-18); BUN/Creat Ratio 13.2 RATIO (10-20); Calcium,Total 9.1 mg/dL (8.5-10.1); Chloride 106 mmol/L (98-107); Creatinine, Serum 1.14 mg/dL (0.70-1.30); EST Glomerular Filtration Rate 66 mL/min (>60); Est Glom Filt Rate - Afr Amer 79 mL/min (>60); Estimated Creatinine Clearance 49.17 ml/min; Glucose 112 mg/dL (74-106); Potassium 4.1 mmol/L (3.5-5.1); Sodium Level 143 mmol/L (136-145)
[2019-04-08 09:44] LABS: D-Dimer Quantitative (DVT/PE) 0.97 FEU/ug/m (0.27-0.49)
[2019-04-08 10:23] VITALS: BP 122/86; PULSE 66; RESP 19; O2SAT 96
[2019-04-08 10:50] VITALS: O2SAT 96
--- NOTE | 2019-04-08 11:10 | NURSING ---
CALLED [facility], DR OROZCO TALKED TO TRANSFER LINE FAXED FACESHEET
--- NOTE | 2019-04-08 11:27 | ED.DCSUM_ITS ---
History of Present Illness Chief Complaint: Shortness of Breath Informant: Patient Narrative: Patient presenting for evaluation secondary to palpitations and shortness of breath. Patient has a extensive history. 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 He has a history of having a aortic valve replacement, as well as cardiovascular disease with stents. 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 He was treated for this, and had improvement. The patient then developed further infectious symptoms and was found to have a liver abscess that did test culture positive. Patient was treated for that, and it was thought that potentially the abscess was from his gallbladder so he underwent cholecystectomy about 3 weeks ago. Throughout the course of the patient's infection he has been having issues with symptomatic atrial tachycardia where his heart rate will go from normal and jump up into the 160s or 170s. Patient's symptoms really are palpitations and lightheadedness and shortness of breath. Patient states that he has been having more frequent symptoms today. There is no real exacerbating relieving factors, he denies being febrile. His incisions from his recent surgery are well healing and noninfected. Review of systems otherwise negative. Past Medical History - Allergies and Home Meds Allergies/Adverse Reactions: Allergies colestipol [From Colestid] Adverse Reaction (Severe, Verified 04/08/19 09:09) Headaches ezetimibe [From Zetia] Adverse Reaction (Severe, Verified 04/08/19 09:09) Myalgias lisinopril Adverse Reaction (Severe, Verified 04/08/19 09:09) Cough Primary Care Physician: Amber Cisneros DO [Primary Care Provider] - Past Medical History: - - Endocarditis, liver abscess, coronary artery disease, aortic valve replacement Surgical History: angioplasty, - - Prostate surgery this September Thoracic aortic coarctation repair (1960) Smoking Status: Never smoker - Family History Maternal Family History: Family History (Last Reviewed 10/09/18 @ 14:36 by My Zambrano) Mother CVA (cerebral vascular accident) brain hemorrhage Father Pneumonia Family History: Reports: No pertinent history Review of Systems All systems negative except as indicated Cardiovascular: Reports: Palpitations Respiratory: Reports: Dyspnea Physical Exam Vital Signs/Narrative: Vital Signs Temp Pulse Resp BP Pulse Ox 04/08/19 10:23 66 19 H 122/86 H 96 04/08/19 09:06 97.6 F L 76 16 149/98 H 95 Inital Vital Signs reviewed: Yes General: Well nourished, Well developed, No Acute Distress Head: Normocephalic, Atraumatic Eyes: Perrl, EOMI ENT: Moist mucous membranes, No rhinorrhea Neck: Supple, Nontender Cardiovascular: Regular rate, Regular rhythm, Murmur - 3 out of 6 Respiratory: No distress, CTA bilaterally, Chest nontender Abdomen: Soft, Nontender, Nondistended, - - Well-healing laparoscopy incisions nonerythematous no evidence of drainage Back: Nontender, Normal Inspection Extremities: Nontender, No edema Skin: Normal color, No rash Neurological: Alert, Oriented x3, Cranial nerves II-XII grossly intact, Normal Strength, Normal Sensation Psychological: Normal affect, Normal Mood Diagnostic/Tx/Re-eval Chest X-Ray - ED: 2 View, Read by ED Physician, Read by Radiologist, Normal - Rhythm Strip Rhythm Strip: Patient has intermittent runs of atrial tachycardia that is regular narrow complex and has a rate in the 150s, then he will spontaneously convert back into a normal sinus rhythm with a ventricular rate of 68 - EKG Initial EKG Interpretation: - - Sinus rhythm with first-degree AV block NC interval is 232. Biphasic T waves noted in lead V2 that were present in a prior EKG. No evidence of acute ST segment changes or T wave changes. - Medical Decision Making Patient presented secondary to bouts of atrial tachycardia. He had multiple bouts in the emergency department. CBC chemistry and troponin found to be negative. I did get a d-dimer on the patient prior to being given the history that he had a history of this in the past. The d-dimer was found to be positive, but the patient is not complaining of hemoptysis, continuous chest pain or shortness of breath, but rather only symptoms when he has this tachycardia. I do not believe that CT angiogram is indicated. Patient has all of his treatment performed at [facility], and he informed me that he likely is pending a EP study and ablation. Patient will be transferred there for further treatment. ED Disposition - Plan for ED Patient: Disposition: [facility] Diagnosis: Atrial tachycardia
--- NOTE | 2019-04-08 11:28 | NURSING ---
CALLED [facility]. ETA IS 45 MIN TO 1 HR
[2019-04-08 12:11] VITALS: BP 123/75; PULSE 69; RESP 17; O2SAT 95
== END 2019-04-08 12:56 | disposition short-term general hospital (02) ==
PROVIDERS: Emergency Provider Emergency Medicine; Family Provider Internal Medicine; PCP Internal Medicine
DX: I47.1 Supraventricular tachycardia (principal); I25.10 Atherosclerotic heart disease of native coronary artery without angina pectoris; I44.0 Atrioventricular block, first degree; Z95.2 Presence of prosthetic heart valve; Z79.82 Long term (current) use of aspirin; Z79.02 Long term (current) use of antithrombotics/antiplatelets; Z79.899 Other long term (current) drug therapy
CPT/HCPCS: 71046; 80048; 84484; 85025; 85379; 85610; 85730; 93005; 99285; A4216

== ENCOUNTER → 2021-04-12 08:54 | Outpatient (CLI) | payer MEDICARE, OTHER, SELFPAY | PROVIDERS: PCP Internal Medicine; Referring Provider Internal Medicine Cardiovascular Disease; Visit Provider Internal Medicine Cardiovascular Disease | DX: I25.10 Atherosclerotic heart disease of native coronary artery without angina pectoris (principal); E78.00 Pure hypercholesterolemia, unspecified; I10 Essential (primary) hypertension; I71.2 Thoracic aortic aneurysm, without rupture; I35.9 Nonrheumatic aortic valve disorder, unspecified; Z95.1 Presence of aortocoronary bypass graft | CPT/HCPCS: 93306 ==

== ENCOUNTER → 2021-06-09 12:58 | Outpatient (CLI) | payer MEDICARE, OTHER, SELFPAY ==
--- NOTE | 2021-06-09 13:03 | CDU_ITS ---
Reason For Study: carotid artery stenosis Rt. Velocities/BP Lt. Velocities/BP Prox CCA 68.2/8.2 cm/sec. Prox CCA 66.2/8.0 cm/sec. Mid CCA 69.5/8.2 cm/sec. Mid CCA 71.7/9.1 cm/sec. Dist CCA 48.6/6.9 cm/sec. Dist CCA 59.7/10.2 cm/sec. Prox ICA 40.9/9.7 cm/sec. Prox ICA 46.5/11.6 cm/sec. Mid ICA 38.1/10.7 cm/sec. Mid ICA 50.9/13.3 cm/sec. Dist ICA 53.2/14.5 cm/sec. Dist ICA 64.8/19.5 cm/sec. Rt. ICA/CCA = .8. Lt. ICA/CCA = .9. Prox ECA 81.2/5.6 cm/sec. Prox ECA 78.3/8.0 cm/sec. Rt. Vert. 14.3/4.2 cm/sec. Lt. Vert. 51.7/12.5 cm/sec. Right Extracranial There is intimal thickening but no significant atherosclerotic plaque noted in the right common carotid artery. There is heterogeneous, irregular atherosclerotic plaque noted in the right internal carotid artery. There is intimal thickening but no significant atherosclerotic plaque noted in the right external carotid artery. Antegrade flow is noted in the right vertebral artery. Left Extracranial There is homogeneous, smooth atherosclerotic plaque noted in the left common carotid artery. There is heterogeneous, irregular atherosclerotic plaque noted in the left internal carotid artery. There is homogeneous, smooth atherosclerotic plaque noted in the left external carotid artery. Antegrade flow is noted in the left vertebral artery. Procedure Carotid Duplex 20197. This is a Carotid Duplex examination using B-mode, color flow and specral Doppler. The exam was diagnostic. Exam performed in department. VL/Carotid Duplex Ultrasound Interpretation Summary Minimal irregular plaque at the proximal right internal carotid artery with les s than 50% stenosis Less than 50% stenosis right external carotid artery Irregular calcific plaque of the proximal left internal carotid artery with les s than 50% stenosis Less than 50% stenosis left external carotid artery Patent and antegrade vertebrals bilaterally No change from the previous examination of August 19, 2018 Ordering Physician: Amber Cisneros Performed By: Bashir Colón RVT
== END ==
PROVIDERS: PCP Internal Medicine; Referring Provider Internal Medicine; Visit Provider Internal Medicine
DX: I65.23 Occlusion and stenosis of bilateral carotid arteries (principal)
CPT/HCPCS: 93880

== ENCOUNTER → 2022-06-21 | Outpatient (CLI) | payer MEDICARE, OTHER, SELFPAY ==
--- NOTE | 2022-06-21 15:52 | ECHOD_ITS ---
Reason For Study: CAD/ASHD Procedure This was a 2D Doppler, Color Flow transthoracic echocardiogram. The exam was of adequate technical quality. Exam performed in department. Left Ventricle Normal LV size. Mild concentric left ventricular hypertrophy. Left ventricular systolic function is normal. The estimated ejection fraction is 70 %. Post operative septal motion. Stage 2 diastolic dysfunction. No regional wall motion abnormalities noted. Right Ventricle Normal RV size. Normal systolic function. Atria The left atrium is mildly enlarged. The right atrium is mildly enlarged. Mitral Valve There is no mitral annular calcification. Mild focal mitral valve calcification of the anterior leaflet. Mild (1+) eccentric mitral valve insufficiency. Tricuspid Valve Normal tricuspid valve. Mild to moderate (1-2+) tricuspid valve insufficiency. Right ventricular systolic pressure estimated to be 33 mmHg. Aortic Valve Trisinus/trileaflet aortic valve. Moderate focal aortic valve calcification. Mild aortic stenosis. Mild (1+) eccentric aortic valve insufficiency. Pulmonic Valve The pulmonic valve is not well visualized. Mild (1+) pulmonic valve insufficiency. Great Vessels Normal sized aortic root. Pericardium/Pleural No pericardial effusion. MMode/2D Measurements & Calculations LVIDd: 4.3 cm IVSd: 1.3 cm LVOT diam: 1.9 cm LVIDs: 2.5 cm LVPWd: 1.4 cm LVOT area: 2.8 cm2 RVDd: 3.1 cm FS: 41.3 % Ao root diam: 3.0 cm LAV(MOD-sp4): 68.1 ml LVAd ap4: 23.3 cm2 LVLd ap4: 6.9 cm EDV(MOD-sp4): 61.9 ml EDV(sp4-el): 66.4 ml LVAs ap4: 11.1 cm2 LVLs ap4: 5.8 cm ESV(MOD-sp4): 18.5 ml ESV(sp4-el): 18.1 ml EF(MOD-sp4): 70.1 % EF(sp4-el): 72.7 % SV(MOD-sp4): 43.4 ml SV(sp4-el): 48.3 ml LA A4 area: 24.7 cm2 LA dimension(2D): 4.1 cm RA A4 area: 32.4 cm2 Time Measurements MV dec time: 0.25 sec Doppler Measurements & Calculations MV E max reed: 120.0 cm/sec Lat Peak E' Reed: 4.8 cm/sec Med Peak E' Reed: 4.4 cm/sec MV A max reed: 116.5 cm/sec E/E' lat: 25.0 E/E' med: 27.6 MV E/A: 1.0 MV V2 max: 122.7 cm/sec Ao V2 max: 224.8 cm/sec MV max P.0 mmHg MV dec slope: 487.9 cm/sec2 Ao max P.2 mmHg MV V2 mean: 66.0 cm/sec Ao V2 mean: 149.8 cm/sec MV mean P.2 mmHg Ao mean P.6 mmHg MV V2 VTI: 45.0 cm Ao V2 VTI: 53.6 cm AV (velocity ratio): 0.60 MVA(VTI): 2.0 cm2 ESTHER(I,D): 1.7 cm2 ESTHER(V,D): 1.6 cm2 AI max reed: 533.1 cm/sec LV V1 max: 130.9 cm/sec SV(LVOT): 89.5 ml AI max P.7 mmHg LV V1 max P.9 mmHg LV V1 mean P.2 mmHg AI dec slope: 297.8 cm/sec2 LV V1 mean: 96.4 cm/sec AI P1/2t: 524.2 msec LV V1 VTI: 32.2 cm PA V2 max: 94.5 cm/sec PI end-d reed: 97.8 cm/sec TR max reed: 273.3 cm/sec PA max PG (full): 2.8 mmHg TR max P.9 mmHg PA V2 mean: 65.2 cm/sec PA mean PG (full): 1.6 mmHg ECHO/Echo Complete Interpretation Summary Left ventricular systolic function is normal. The estimated ejection fraction is 70 %. Mild concentric left ventricular hypertrophy. Post operative septal motion. The left atrium is mildly enlarged. The right atrium is mildly enlarged. Mild focal mitral valve calcification of the anterior leaflet. Mild (1+) eccentric mitral valve insufficiency. Mild to moderate (1-2+) tricuspid valve insufficiency. Mild aortic stenosis. Mild (1+) eccentric aortic valve insufficiency. Mild (1+) pulmonic valve insufficiency. Right ventricular systolic pressure estimated to be 33 mmHg. Stage 2 diastolic dysfunction. Comment: a) 2D echocardiographic images demostrate an echodenisty in the area of the aor tic valve annulus / base of the anterior mitral valve leaflet c/w aortic valve annular calcifiation : severe. b) compared to the previous transthoracic echocardiogram from 04-12-2021 : Ther e are similar type findings. Ordering Physician: Carmine Hart Referring Physician: Carmine Hart Performed By: Nelly Mnuiz RCS
== END | disposition home or self-care (01) ==
PROVIDERS: PCP Internal Medicine; Referring Provider Nurse Practitioner Family; Visit Provider Nurse Practitioner Family
DX: I25.10 Atherosclerotic heart disease of native coronary artery without angina pectoris (principal); I35.9 Nonrheumatic aortic valve disorder, unspecified; R00.2 Palpitations
CPT/HCPCS: 93306

== ENCOUNTER → 2022-07-19 | Outpatient (CLI) | payer MEDICARE, OTHER, SELFPAY ==
--- NOTE | 2022-07-19 11:55 | CDU_ITS ---
Reason For Study: Carotid Stenosis Rt. Velocities/BP Lt. Velocities/BP Prox CCA 53.5/5.3 cm/sec. Prox CCA 62.2/9.5 cm/sec. Mid CCA 43.4/7.8 cm/sec. Mid CCA 44.6/8.4 cm/sec. Dist CCA 34.6/6.1 cm/sec. Dist CCA 45.7/9.5 cm/sec. Prox ICA 40.3/9.7 cm/sec. Prox ICA 33.6/7.4 cm/sec. Mid ICA 39.6/10.9 cm/sec. Mid ICA 48.5/14.5 cm/sec. Dist ICA 47.4/14.7 cm/sec. Dist ICA 50.4/13.7 cm/sec. Rt. ICA/CCA = 0.9. Lt. ICA/CCA = 1.1. Prox ECA 50.2/4.7 cm/sec. Prox ECA 54.5/5.1 cm/sec. Rt. Vert. 16.7/4.7 cm/sec. Lt. Vert. 49.0/12.7 cm/sec. Right Extracranial There is heterogeneous, smooth atherosclerotic plaque noted in the right common carotid artery. There is heterogeneous, irregular atherosclerotic plaque noted in the right internal carotid artery. There is heterogeneous, smooth atherosclerotic plaque noted in the right external carotid artery. Antegrade flow is noted in the right vertebral artery. Left Extracranial There is heterogeneous, smooth atherosclerotic plaque noted in the left common carotid artery. There is heterogeneous, irregular atherosclerotic plaque noted in the left internal carotid artery. There is heterogeneous, smooth atherosclerotic plaque noted in the left external carotid artery. Antegrade flow is noted in the left vertebral artery. Procedure Carotid Duplex [id number]. This is a Carotid Duplex examination using B-mode, color flow and specral Doppler. The exam was diagnostic. Exam performed in department. VL/Carotid Duplex Ultrasound Interpretation Summary Minimal plaque at the proximal right internal carotid artery with less than 50% stenosis Less than 50% stenosis right external carotid artery Irregular plaque at the proximal left internal carotid artery with less than 50 % stenosis Less than 50% stenosis left external carotid artery Patent and antegrade vertebral arteries bilaterally No change from the previous examination of June 09, 2021 Ordering Physician: Amber Cisneros Referring Physician: Amber Cisneros D.O. Performed By: Luis Rice RVT
--- NOTE | 2022-07-19 11:55 | US_ITS ---
INDICATION: thyroid nodule -- thyroid nodule EXAMINATION: Ultrasound US Thyroid (eg thyroid, parathyroid, parotid) TECHNIQUE: Becker scale and color doppler imaging was performed of the thyroid gland. COMPARISON: None. FINDINGS: RIGHT THYROID LOBE: Measures 3.9 x 1.7 x 1.9 cm. Homogeneous echotexture with normal vascularity. [No thyroid nodules are present. Multiple colloid cysts. LEFT THYROID LOBE: Measures 4.4 x 1.3 x 1.5 cm. Homogeneous echotexture with normal vascularity. [No thyroid nodules are present. Multiple colloid cysts. ISTHMUS: Measures 0.4 cm. No thyroid nodules are present. 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 Otherwise normal appearing thyroid gland. Electronically Signed: Barrington Henderson MD at 18:16 EST ,
== END | disposition home or self-care (01) ==
LOC: CVS 11:53
PROVIDERS: PCP Internal Medicine; Visit Provider Internal Medicine
DX: I65.23 Occlusion and stenosis of bilateral carotid arteries (principal); E04.1 Nontoxic single thyroid nodule
CPT/HCPCS: 76536; 93880

== ENCOUNTER 2023-06-05 07:59 | Emergency (ER) | payer MEDICARE, OTHER, SELFPAY ==
[2023-06-05 08:00] VITALS: BP 163/96; PULSE 82; RESP 15; TEMP 36.6; O2SAT 95; BMI 25.5
--- NOTE | 2023-06-05 08:29 | EKG12_ITS ---
Test Reason : Blood Pressure : / mmHG Vent. Rate : 078 BPM Atrial Rate : 079 BPM P-R Int : 288 ms QRS Dur : 094 ms QT Int : 376 ms P-R-T Axes : 092 -20 112 degrees QTc Int : 428 ms Sinus rhythm with 1st degree A-V block Left ventricular hypertrophy with repolarization abnormality ( R in aVL , [place] product ) Cannot rule out Septal infarct , age undetermined Inferior infarct , age undetermined Abnormal ECG Confirmed by ISMAEL AMEZCUA, SHOSHANA ([id number]), manager editorial TRESA HINKLE ([id number]) on 06/06/2023 11:03:09 AM Referred By: Confirmed By:SHOSHANA GUEVARA MD
--- NOTE | 2023-06-05 08:30 | EDS_ITS ---
HPI History of Present Illness Chief Complaint: Fever Informant: patient and friend Narrative Narrative: 83-year-old male presenting to the emergency room chief complaint of feeling ill. Patient states that his was sick and on Sunday evening he began to feel ill. He notes he developed nasal congestion/rhinorrhea cough diarrhea fever and body aches. He states that he did not sleep well last night because of nasal congestion on the right. He took a cough drop and states that that opened up. He states he still was not feeling well this morning and had a temperature of 101. He took a Tylenol. No syncope. No chest pain. He notes a long cardiac history including bypass and valvular disease. [facility] Medical History (Updated 06/05/23 @ 09:[address] 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 Shortness of breath Syncope Ventricular tachycardia Home Medications clopidogrel 75 mg tablet 75 mg PO DAILY HEART 09/19/13 [History Last Taken 12/18/18] pravastatin 40 mg tablet 40 mg PO QHS CHOLESTEROL LOWERING 09/19/13 [History Last Taken 12/18/18] aspirin 81 mg tablet,delayed release 81 mg PO DAILY HEART 12/20/14 [History Last Taken 12/18/18] carvedilol 25 mg tablet 25 mg PO BID HEART 12/21/14 [History Last Taken 12/19/18] amlodipine 2.5 mg tablet 2.5 mg PO QDAY BLOOD PRESSURE 09/12/17 [History Last Taken 12/18/18] lactobacillus combination no.8 3 billion cell capsule (Adult Probiotic) 3,000 mmu cells PO QDAY 09/12/17 [History Last Taken 12/18/18] nitroglycerin 0.4 mg sublingual tablet 0.4 mg sublingual Q5M PRN Pain #25 tabs 03/31/21 [Rx Last Taken Unknown] cholestyramine (with sugar) 4 gram powder for susp in a packet 1 ea PO BID 03/16/22 [History Last Taken Unknown] valsartan 80 mg tablet 80 mg PO BID 03/16/22 [History Last Taken Unknown] Allergy/AdvReac Type Severity Reaction Status Date / Time colestipol [From Colestid] AdvReac Severe Headaches Verified 06/05/23 08:03 ezetimibe [From Zetia] AdvReac Severe Myalgias Verified 06/05/23 08:03 lisinopril AdvReac Severe Cough Verified 06/05/23 08:03 Family History Mother CVA (cerebral vascular accident) brain hemorrhage Father Pneumonia Surgical History (Updated 06/05/23 @ 09:[address] Shade Thakur DO) Aortocoronary bypass status (~06/08/14) History of prostate surgery History of transurethral resection of prostate Postsurgical percutaneous transluminal coronary angioplasty (PTCA) status Presence of stent in coronary artery (~01/03/11) Status post aortic coarctation repair (~1960) Social History Smoking Status: Never smoker alcohol intake: never substance use type: does not use caffeine: No what type of physical activity do you participate in: other details: alexander seatbelt use: always do you feel safe at home: Yes ROS ROS ED Constitutional Constitutional ED: Reports chills and fever(s); Denies weight loss Eyes Eyes: Denies change in vision or diplopia ENT ENT ED: Reports rhinorrhea; Denies ear pain or sore throat Cardiovascular Cardiovascular: Denies chest pain, orthopnea, palpitations or racing heartbeat Respiratory/Chest Respiratory/Chest: Reports cough; Denies dyspnea or orthopnea Gastrointestinal Gastrointestinal: Reports diarrhea; Denies abdominal pain, nausea or vomiting Genitourinary Genitourinary ED: Denies dysuria, hematuria or urinary frequency Musculoskeletal Musculoskeletal: Reports back pain and myalgias; Denies arthralgias Integumentary Denies abscess or rash Neurologic Neurologic: Denies headache(s) or weakness Psychiatric Psychiatric: Denies anxiety, depression, suicidal ideation or suicidal thoughts Endocrine Endocrinology: Denies polydipsia, polyphagia or polyuria Allergic/Immunologic Allergic/Immunologic ED: Denies mouth swelling, tongue swelling or urticaria EXAM Physical Exam Const Vital Signs: 06/05/23 08:00 11/28/23 08:20 Temperature 97.8 F Temperature Source Temporal Pulse Rate 82 Respiratory Rate 15 Respiratory Pattern Normal Blood Pressure 163/96 H Blood Pressure Mean 118 Pulse Ox 95 Oxygen Delivery Method Room Air Positive well nourished and well developed General Appearance ED: well developed HEENT Reports normocephalic, head/scalp atraumatic and moist mucous membranes Eyes PERRL and EOMs intact bilaterally Neck no lymphadenopathy, supple and no JVD Resp normal respiratory effort and clear to auscultation bilaterally Cardio regular rate, regular rhythm and no murmurs GI normal to inspection, nondistended, normoactive bowel sounds and non-tender Palpation: soft Back/Spine no CVA tenderness and normal ROM Extremity normal to inspection General Extremety ED: Negative for edema General Extremity: Negative for edema Neuro oriented x3 and CN's II-XII intact bilaterally Sensorium / Orientation: alert Motor Exam: strength 5/5 throughout Psych mental status grossly normal Mood & Affect: Negative for depressed or tearful Skin no rashes or lesions noted and no wounds MDM MDM MDM Narrative Medical decision making narrative: Broad differential includes but not limited to infectious etiology such as COVID-19 and influenza, pneumonia, UTI, ACS, electrolyte abnormalities, dehydration. White count 9.2 hemoglobin 12.9. CMP with a glucose of 121. Troponin is 12. Urinalysis with no overt infection. COVID-19 positive. My independent interpretation of the chest x-ray is no acute process. Patient's had no events on the monitor. His EKG is sinus with no ACS features. At this point I think the patient can be discharged home. He is not requiring supplemental oxygen. Would recommend continued Tylenol as needed for fever. Fluid hydration. Rest and follow-up as needed. He is now at day 6 outside the window for COVID-19 therapies. History & Record Review Discussion w/independent historian: Patient and Friend Additional record(s) reviewed:: Prior labs Lab Data Attestation: I reviewed the patient's lab results. Labs: Laboratory Results - last 24 hr 06/05/23 06/05/23 08:35 09:27 WBC 9.2 RBC 4.15 L Hgb 12.9 L Hct 39.1 L MCV 94.2 H MCH 31.1 MCHC 33.0 RDW Std Deviation 43.8 RDW Coeff of Brett 12.6 Plt Count 242 MPV 9.0 Immature Gran % (Auto) 0.500 Neut % (Auto) 84.4 H Lymph % (Auto) 6.6 L [place] % (Auto) 7.0 Eos % (Auto) 1.2 Baso % (Auto) 0.3 Absolute Neuts (auto) 7.8 H Absolute Lymphs (auto) 0.61 L Nucleated RBC % 0 Sodium 132 L Potassium 3.7 Chloride 100 Carbon Dioxide 27.0 Anion Gap 5 BUN 13 Creatinine 1.02 Estim Creat Clear Calc 52.95 Est GFR (MDRD) Af Amer 89 Est GFR (MDRD) Non-Af 74 BUN/Creatinine Ratio 12.7 Glucose 121 H Calcium 8.2 L Total Bilirubin 0.70 AST 14 L ALT 25 Alkaline Phosphatase 58 Troponin I High Sens 12 Total Protein 6.9 Albumin 2.9 L Globulin 4.0 Albumin/Globulin Ratio 0.7 L Urine Color Yellow Urine Clarity Clear Urine pH 6.0 Ur Specific [place] 1.015 Urine Protein 30 H Urine Glucose (UA) Normal Urine Ketones 5 H Urine Occult Blood 10 H Urine Nitrite Negative Urine Bilirubin Negative Urine Urobilinogen 8 H Ur Leukocyte Esterase 25 H Urine RBC 0-5 SEEN Urine WBC 0-5 SEEN Ur Squamous Epith Cells 0-5 SEEN Urine Bacteria 1+ Urine Mucus 0 SEEN Radiography Diagnostic Testing: Clinical Impression(s) from Imaging Studies Chest X-Ray 06/05/23 08:45 IMPRESSION: No acute cardiopulmonary abnormality. No interval change. Electronically Signed: Charly Carmona MD at 8:54 EST Reading Location ID and State: [address] [place] [address] Tel , Service support , EKG Initial EKG: Attestation: I personally reviewed and interpreted this EKG as follows: Comments: Sinus rhythm with first-degree AV block and a ventricular rate of 78 bpm. Discharge Plan Triage Chief Complaint: Fever ED Provider: Shade Thakur Dx/Rx/DC Orders Clinical Impression: COVID-19, Atherosclerotic heart disease of [place] coronary artery without angina pectoris, Aortocoronary bypass status, Essential hypertension Instructions: Coronavirus Disease 2019 (COVID-19): Caring for Yourself or Others Prescriptions: No Action amlodipine 2.5 mg tablet 2.5 mg PO QDAY lactobacillus combination no.8 [Adult Probiotic] 3 billion cell capsule 3,000 mmu cells PO QDAY nitroglycerin 0.4 mg tablet, sublingual 0.4 mg SUBLINGUAL Q5M PRN (Reason: Pain) Qty: 25 1RF cholestyramine (with sugar) 4 gram powder in packet 1 ea PO BID valsartan 80 mg tablet 80 mg PO BID pravastatin 40 MG tablet 40 mg PO QHS Patient Comments: lower cholesterol clopidogrel 75 MG tablet 75 mg PO DAILY Patient Comments: decrease cholesterol aspirin 81 MG tablet 81 mg PO DAILY carvedilol 25 MG tablet 25 mg PO BID Primary Care Provider: Amber Cisneros Referrals: Amber Cisneros DO [Primary Care Provider] - As Needed Disposition Disposition: Home, Self Care
--- NOTE | 2023-06-05 08:45 | RAD_ITS ---
EXAM: XR CHEST, 1 VIEW CLINICAL INDICATION: cough TECHNIQUE: Frontal view of the chest. COMPARISON: XR Chest dated 04/08/2019 FINDINGS: LUNGS AND PLEURAL SPACES: Stable pleural-parenchymal scarring of the left lung. HEART: Surgical changes of coronary artery bypass graft (CABG). Normal heart size. MEDIASTINUM: No mediastinal or hilar mass. BONES/JOINTS: No acute abnormality. RAD/Chest 1 View (Portable) IMPRESSION: No acute cardiopulmonary abnormality. No interval change. Electronically Signed: Charly Carmona MD at 8:54 EST ,
[2023-06-05 08:50] LABS: Absolute Lymphocyte Count 0.61 X10^3/uL (0.83-4.51); Absolute Neutrophil Count 7.8 X10^3/uL (2.0-7.7); Basophil# 0.03 X10^3/uL; Basophil% 0.3 % (0-1); Eosinophil# 0.11 X10^3/uL; Eosinophils% 1.2 % (0-5); Hematocrit 39.1 % (40-54); Hemoglobin 12.9 g/dL (13.0-16.5); Lymphocyte # 0.61 X10^3/ul (0.83-4.51); Lymphocyte % 6.6 % (19-41); Mean Corpuscular Hgb 31.1 pg (27.0-32.0); Mean Corpuscular Volume 94.2 fL (80-94); Monocyte# 0.64 X10^3/uL; NRBC Flagged by Analyzer 0 % (0-5); Neutrophil # 7.76 X10^3/uL (2.7-7.7); Neutrophil % 84.4 % (47-70); Platelet Count 242 K/mm3 (150-450); RBC Distribution Width CV 12.6 % (11.6-14.6); RBC Distribution Width SD 43.8 fl (35.1-43.9); Red Blood Count 4.15 M/mm3 (4.6-6.2); White Blood Count 9.2 K/mm3 (4.4-11.0)
[2023-06-05 09:04] LABS: ALB/GLOB Ratio 0.7 RATIO (0.9-2.4); AST(SGOT) 14 U/L (15-37); Alanine Aminotransfer ALT/SGPT 25 U/L (16-61); Albumin, Serum 2.9 g/dL (3.2-5.0); Alkaline Phosphatase 58 U/L (45-117); Anion Gap 5 (5-15); BUN 13 mg/dL (7-18); BUN/Creat Ratio 12.7 RATIO (10-20); Calcium,Total 8.2 mg/dL (8.5-10.1); Chloride 100 mmol/L (98-107); Creatinine, Serum 1.02 mg/dL (0.70-1.30); EST Glomerular Filtration Rate 74 mL/min (>60); Est Glom Filt Rate - Afr Amer 89 mL/min (>60); Estimated Creatinine Clearance 52.95 ml/min; Glucose 121 mg/dL (74-106); Potassium 3.7 mmol/L (3.5-5.1); Protein, Total 6.9 g/dL (6.4-8.2); Sodium Level 132 mmol/L (136-145); Troponin-I HS 12 pg/mL (3.0-78.0)
[2023-06-05 09:32] LABS: Mucous, Urine 0 SEEN /hpf (<or=2+)
[2023-06-05 09:33] LABS: Color, Urine Yellow (Yellow); Glucose, Dipstick Normal (Normal); Ketone-Dipstick 5 mg/dl (Negative); Leukocyte Esterase-Dipstick 25 /ul (Negative); Nitrite-Dipstick Negative (Negative); Occult Blood-Urine 10 /ul (Negative); Protein-Dipstick 30 mg/dl (Negative); Specific Gravity, Urine 1.015 (1.002-1.030); Urine Bilirubin Dipstick Negative (Negative); Urine Clarity Clear (Clear); Urine Urobilinogen 8 mg/dl (Normal)
[2023-06-05 09:42] LABS: Bacteria 1+ /hpf (None Seen); Red Blood Cells-Urine 0-5 SEEN /hpf (0-5); Squamous Epithelial Cells - UA 0-5 SEEN /hpf (0-5); White Blood Cells 0-5 SEEN /hpf (0-5)
[2023-06-05 10:05] VITALS: O2SAT 94
== END 2023-06-05 10:06 | disposition home or self-care (01) ==
PROVIDERS: Emergency Provider Emergency Medicine; PCP Internal Medicine; Visit Provider Emergency Medicine
DX: U07.1 COVID-19 (principal); I25.10 Atherosclerotic heart disease of native coronary artery without angina pectoris; E78.00 Pure hypercholesterolemia, unspecified; I10 Essential (primary) hypertension; Z79.82 Long term (current) use of aspirin; Z79.899 Other long term (current) drug therapy; Z95.1 Presence of aortocoronary bypass graft; Z95.5 Presence of coronary angioplasty implant and graft
CPT/HCPCS: 71045; 80053; 81001; 84484; 85025; 87428; 93005; 99284; A4216

== ENCOUNTER → 2023-07-20 | Outpatient (CLI) | payer MEDICARE, OTHER, SELFPAY ==
--- NOTE | 2023-07-20 10:57 | ECHOD_ITS ---
Reason For Study: ABNORMAL HEART RYTHM Procedure This was a 2D Doppler, Color Flow transthoracic echocardiogram. Exam performed in department. Left Ventricle Normal LV size. Left ventricular systolic function is normal. The estimated ejection fraction is 65 %. No regional wall motion abnormalities noted. Right Ventricle Normal RV size. Normal systolic function. Atria Normal left atrium. Normal right atrium. Mitral Valve There is mild mitral annular calcification. Mild (1+) eccentric mitral valve insufficiency. Tricuspid Valve Normal tricuspid valve. Mild (1+) tricuspid valve insufficiency. Pulmonary artery systolic pressure is 38 mmHg. Aortic Valve Trisinus/trileaflet aortic valve. Mild focal aortic valve calcification. Mild (1+) aortic valve insufficiency. Pulmonic Valve Normal pulmonic valve. Mild (1+) pulmonic valve insufficiency. Great Vessels Normal aortic root. The pulmonary artery is normal size. Normal inferior vena cava. Pericardium/Pleural No pericardial effusion. MMode/2D Measurements & Calculations LVIDd: 3.9 cm IVSd: 1.1 cm LVOT diam: 1.9 cm LVIDs: 2.6 cm LVPWd: 1.2 cm LVOT area: 2.8 cm2 RVDd: 3.5 cm FS: 32.9 % Ao root diam: 3.8 cm LAV(MOD-bp): 53.8 ml LVAd ap4: 29.4 cm2 LAV(MOD-bp) Indexed: 27.5 ml/m2 LVLd ap4: 7.3 cm LAV(MOD-sp2): 51.1 ml EDV(MOD-sp4): 96.3 ml LAV(MOD-sp4): 56.8 ml EDV(sp4-el): 100.1 ml LVAs ap4: 15.5 cm2 LVLs ap4: 6.0 cm ESV(MOD-sp4): 34.1 ml ESV(sp4-el): 33.7 ml EF(MOD-sp4): 64.5 % EF(sp4-el): 66.3 % SV(MOD-sp4): 62.1 ml SV(sp4-el): 66.4 ml LA A4 area: 20.7 cm2 LA dimension(2D): 3.7 cm RA A4 area: 18.7 cm2 Time Measurements MV dec time: 0.25 sec Doppler Measurements & Calculations MV E max reed: 127.0 cm/sec Lat Peak E' Reed: 7.3 cm/sec Med Peak E' Reed: 5.6 cm/sec MV A max reed: 122.1 cm/sec E/E' lat: 17.4 E/E' med: 22.5 MV E/A: 1.0 MV V2 max: 148.2 cm/sec Ao V2 max: 220.3 cm/sec AI max reed: 531.1 cm/sec MV max P.8 mmHg Ao max P.4 mmHg AI max P.8 mmHg MV V2 mean: 82.3 cm/sec Ao V2 mean: 156.8 cm/sec MV mean P.4 mmHg Ao mean P.0 mmHg AI dec slope: 272.8 cm/sec2 MV V2 VTI: 43.2 cm Ao V2 VTI: 53.7 cm AI P1/2t: 570.1 msec AV (velocity ratio): 0.74 MVA(VTI): 2.6 cm2 ESTHER(I,D): 2.1 cm2 ESTHER(V,D): 2.1 cm2 LV V1 max: 163.5 cm/sec SV(LVOT): 110.5 ml PA V2 max: 79.2 cm/sec LV V1 max P.7 mmHg LV V1 mean P.4 mmHg LV V1 mean: 107.7 cm/sec LV V1 VTI: 39.8 cm TR max reed: 288.7 cm/sec TR max P.3 mmHg ECHO/Echo Complete Interpretation Summary Normal LV size. Left ventricular systolic function is normal. The estimated ejection fraction is 65 %. Pulmonary artery systolic pressure is 38 mmHg. There is mild mitral annular calcification. Mild (1+) aortic valve insufficiency. Ordering Physician: Amber Cisneros Referring Physician: Amber Cisneros Performed By: María Chaparro RDCS
== END | disposition home or self-care (01) ==
LOC: CVS 10:54
PROVIDERS: PCP Internal Medicine; Referring Provider Internal Medicine; Visit Provider Internal Medicine
DX: I49.9 Cardiac arrhythmia, unspecified (principal); R06.02 Shortness of breath
CPT/HCPCS: 93306

== ENCOUNTER → 2023-08-08 | Outpatient (CLI) | payer MEDICARE, OTHER, SELFPAY ==
--- NOTE | 2023-08-08 09:46 | CDU_ITS ---
Reason For Study: Carotid Stenosis Rt. Velocities/BP Lt. Velocities/BP Prox CCA 59/8 cm/sec. Prox CCA 96/13 cm/sec. Mid CCA 71/11 cm/sec. Mid CCA 65/10 cm/sec. Dist CCA 42/8 cm/sec. Dist CCA 45/8 cm/sec. Prox ICA 61/10 cm/sec. Prox ICA 49/10 cm/sec. Mid ICA 41/13 cm/sec. Mid ICA 50/13 cm/sec. Dist ICA 54/16 cm/sec. Dist ICA 63/20 cm/sec. Rt. ICA/CCA = 0.9. Lt. ICA/CCA = 1.0. Prox ECA 88/5 cm/sec. Prox ECA 84/5 cm/sec. Rt. Vert. 25/8 cm/sec. Lt. Vert. 96/20 cm/sec. Right Extracranial There is heterogeneous, smooth atherosclerotic plaque noted in the right common carotid artery. There is heterogeneous, irregular atherosclerotic plaque noted in the right internal carotid artery. There is heterogeneous, smooth atherosclerotic plaque noted in the right external carotid artery. Antegrade flow is noted in the right vertebral artery. Left Extracranial There is heterogeneous, irregular atherosclerotic plaque noted in the left common carotid artery. There is heterogeneous, irregular atherosclerotic plaque noted in the left internal carotid artery. There is intimal thickening but no significant atherosclerotic plaque noted in the left external carotid artery. Antegrade flow is noted in the left vertebral artery. Procedure Carotid Duplex 86696. This is a Carotid Duplex examination using B-mode, color flow and specral Doppler. Exam performed in department. VL/Carotid Duplex Ultrasound Interpretation Summary Mild (<50%) stenosis right extracranial internal carotid. Mild (<50%) stenosis left extracranial internal carotid. Patent and antegrade vertebrals bilaterally. Ordering Physician: Amber Cisneros Referring Physician: Amber Cisneros Performed By: Ángela Hart, MARY ANNE, RVT
== END | disposition home or self-care (01) ==
LOC: CVS 09:41
PROVIDERS: PCP Internal Medicine; Referring Provider Internal Medicine; Visit Provider Internal Medicine
DX: I65.23 Occlusion and stenosis of bilateral carotid arteries (principal)
CPT/HCPCS: 93880

== ENCOUNTER → 2023-08-21 | Outpatient (CLI) | payer MEDICARE, OTHER, SELFPAY ==
--- NOTE | 2023-08-21 13:04 | US_ITS ---
STUDY: THYROID ULTRASOUND REASON FOR EXAM: Male, 83 years old. Thyroid nodules. TECHNIQUE: Ultrasound evaluation of the thyroid was performed with real-time and static [place]-scale imaging. COMPARISON: Comparison is made with prior study dated July 19, 2022. FINDINGS: RIGHT LOBE: The right lobe of the thyroid gland measures 4.1 cm x 2 cm x 2 cm. There is a homogeneous echotexture. Once again, there are multiple colloid cysts. The largest measures 5 mm x 5 mm x 4 mm. LEFT LOBE: The left lobe of the thyroid gland measures 3.9 cm x 2 cm x 1.9 cm. There is a homogeneous echotexture. Once again, there are numerous colloid cysts. The largest measures 4 mm x 4 mm x 3 mm. ISTHMUS: The isthmus measures 4 mm. The regional lymph nodes are normal. US/Thyroid IMPRESSION: Stable multiple bilateral colloid cysts measuring less than 1 cm. Electronically Signed: Jaime Gunn MD at 14:41 EST ,
== END | disposition home or self-care (01) ==
LOC: US 12:59
PROVIDERS: PCP Internal Medicine; Referring Provider Internal Medicine; Visit Provider Internal Medicine
DX: E04.1 Nontoxic single thyroid nodule (principal)
CPT/HCPCS: 76536

== ENCOUNTER → 2024-01-02 | Outpatient (CLI) | payer MEDICARE, OTHER, SELFPAY ==
[2024-01-02 10:00] LABS: Absolute Lymphocyte Count 1.08 X10^3/uL (0.83-4.51); Absolute Neutrophil Count 3.6 X10^3/uL (2.0-7.7); Basophil# 0.06 X10^3/uL; Basophil% 1.1 % (0-1); Eosinophil# 0.26 X10^3/uL; Eosinophils% 4.6 % (0-5); Hematocrit 39.3 % (40-54); Hemoglobin 12.6 g/dL (13.0-16.5); Lymphocyte # 1.08 X10^3/ul (0.83-4.51); Mean Corp Hgb Conc 32.1 g/dL (32-36); Mean Corpuscular Volume 96.8 fL (80-94); Mean Platelet Vol. 8.5 fl (6.2-12.0); Monocyte# 0.62 X10^3/uL; Monocyte% 10.9 % (0-10); NRBC Flagged by Analyzer 0 % (0-5); Neutrophil # 3.64 X10^3/uL (2.7-7.7); Neutrophil % 63.9 % (47-70); Platelet Count 226 K/mm3 (150-450); RBC Distribution Width CV 14.2 % (11.6-14.6); RBC Distribution Width SD 50.9 fl (35.1-43.9); Red Blood Count 4.06 M/mm3 (4.6-6.2); White Blood Count 5.7 K/mm3 (4.4-11.0)
[2024-01-02 10:25] LABS: ALB/GLOB Ratio 1.1 RATIO (0.9-2.4); AST(SGOT) 14 U/L (15-37); Alanine Aminotransfer ALT/SGPT 19 U/L (16-61); Albumin, Serum 3.4 g/dL (3.2-5.0); Alkaline Phosphatase 85 U/L (45-117); Anion Gap 3 (5-15); BUN 16 mg/dL (7-18); BUN/Creat Ratio 16.1 RATIO (10-20); Calcium,Total 8.8 mg/dL (8.5-10.1); Chloride 104 mmol/L (98-107); EST Glomerular Filtration Rate 76 mL/min (>60); Est Glom Filt Rate - Afr Amer 92 mL/min (>60); Globulin 3.2 g/dL (2.2-4.2); Glucose 70 mg/dL (74-106); Potassium 4.1 mmol/L (3.5-5.1); Protein, Total 6.6 g/dL (6.4-8.2); Sodium Level 135 mmol/L (136-145)
== END | disposition home or self-care (01) ==
LOC: PSN 09:01
PROVIDERS: PCP Internal Medicine; Referring Provider Internal Medicine; Visit Provider Internal Medicine
DX: D64.9 Anemia, unspecified (principal)
CPT/HCPCS: 36415; 80053; 85025; 93225; 93226

== ENCOUNTER → 2024-09-30 | Outpatient (CLI) | payer MEDICARE, OTHER, SELFPAY ==
--- NOTE | 2024-09-30 07:41 | CDU_ITS ---
Reason For Study Reason For Study: Carotid Artery Stenosis Rt. Velocities/BP Lt. Velocities/BP Prox CCA 50.6/7.2 cm/sec. Prox CCA 79.0/13.6 cm/sec. Mid CCA 60.1/10.0 cm/sec. Mid CCA 60.7/10.1 cm/sec. Dist CCA 47.8/11.9 cm/sec. Dist CCA 51.1/9.2 cm/sec. Prox ICA 46.9/19.3 cm/sec. Prox ICA 41.3/10.6 cm/sec. Mid ICA 58.2/17.6 cm/sec. Mid ICA 53.5/14.2 cm/sec. Dist ICA 62.0/17.6 cm/sec. Dist ICA 78.7/20.4 cm/sec. Rt. ICA/CCA = 1.0. Lt. ICA/CCA = 1.3. Prox ECA 60.1/6.2 cm/sec. Prox ECA 53.2/6.8 cm/sec. Rt. Vert. 21.6/5.0 cm/sec. Lt. Vert. 50.2/11.0 cm/sec. Right Extracranial There is heterogeneous, irregular atherosclerotic plaque noted in the right common carotid artery. There is heterogeneous, irregular atherosclerotic plaque noted in the right internal carotid artery. There is intimal thickening but no significant atherosclerotic plaque noted in the right external carotid artery. Antegrade flow is noted in the right vertebral artery. Left Extracranial There is heterogeneous, irregular atherosclerotic plaque noted in the left common carotid artery. There is heterogeneous, irregular atherosclerotic plaque noted in the left internal carotid artery. There is intimal thickening but no significant atherosclerotic plaque noted in the left external carotid artery. Antegrade flow is noted in the left vertebral artery. Procedure Carotid Duplex [id number]. This is a Carotid Duplex examination using B-mode, color flow and specral Doppler. The exam was diagnostic. Exam performed in department. VL/Carotid Duplex Ultrasound Interpretation Summary Mild (<50%) stenosis right extracranial internal carotid. Mild (<50%) stenosis left extracranial internal carotid. Patent and antegrade vertebrals bilaterally. Ordering Physician: Amber Cisneros Referring Physician: Amber Cisneros Performed By: Luis Rice RVT
== END | disposition home or self-care (01) ==
LOC: CVS 07:40
PROVIDERS: PCP Internal Medicine; Referring Provider Internal Medicine; Visit Provider Internal Medicine
DX: I65.23 Occlusion and stenosis of bilateral carotid arteries (principal)
CPT/HCPCS: 93880

== ENCOUNTER → 2024-12-22 | Outpatient (CLI) | payer MEDICARE, OTHER, SELFPAY | END | disposition home or self-care (01) | LOC: LAB 09:38 | PROVIDERS: PCP Internal Medicine; Referring Provider Urology; Visit Provider Urology | DX: R97.20 Elevated prostate specific antigen [PSA] (principal) | CPT/HCPCS: 36415; 84153 ==